=== PATIENT | female | born 1960 | race Caucasian/White ===

== ENCOUNTER → 2022-07-10 07:56 | Outpatient (BNVA) | payer OTHER, SELFPAY | PROVIDERS: PCP Family Medicine; Visit Provider Psychiatry & Neurology Neurology | DX: G43.909 Migraine, unspecified, not intractable, without status migrainosus (principal) ==

== ENCOUNTER 2023-07-01 07:55 | Outpatient (AMB) | payer OTHER, SELFPAY ==
--- NOTE | 2023-07-01 08:00 | MHC.OFFVIS ---
Intake Vital Signs 07/01/23 08:01 Height 5 ft 8 in Weight 161 lb 4 oz BMI 24.5 BP 140/80 H Blood Pressure Location Rt brachial Position Sitting Respiration 16 Pulse 64 Pulse Source Palpation Pulse Oximetry (%) 98 Intake Visit Reasons: 1yr F/u Migraine - Confirmed Intake Note: Pt presents to the office for a one year follow up for migraines. Green Chainer Required: No Allergies atropine [From Lomotil] Allergy (Mild, Verified 07/01/23 08:00) Unknown codeine Allergy (Mild, Verified 07/01/23 08:00) Hives COVID-19 vaccine, mRNA, LNP-S, pediatric (Moderna) [From Moderna COVID(6-11y) Vac(Unap)] Allergy (Mild, Verified 07/01/23 08:00) Hives diphenoxylate [From Lomotil] Allergy (Mild, Verified 07/01/23 08:00) Unknown hydrocodone Allergy (Mild, Verified 07/01/23 08:00) Hives hydromorphone [From Dilaudid] Allergy (Mild, Verified 07/01/23 08:00) Shortness of Breath vaccine adjuvant system, AS01B lipo [From Shingrix (PF)] Allergy (Mild, Verified 07/01/23 08:00) Hives varicella-zoster virus glycoprotein [From Shingrix (PF)] Allergy (Mild, Verified 07/01/23 08:00) Hives Medication List - Last Reconciled 07/01/23 by Rody Gong MD albuterol sulfate 90 mcg/actuation 2 puffs inhalation Q6H PRN B-complex with vitamin C 1 cap PO DAILY fremanezumab-vfrm (Ajovy) 675 mg (4.5 mL) subcut [id number] gabapentin 1-3 caps qhs orally bedtime; levothyroxine 50 mcg PO DAILY magnesium oxide 400 mg PO DAILY multivitamin 1 tab PO DAILY sumatriptan succinate 100 mg PO DIRECTED HPI HPI Comments History of Present Illness Details 63y/o female with chronic migraines with aura comes for follow up .she takes ajovy 225 mg q monthly and her migraine days ahve decreased from 20 migraine days a month to 1-2 migraine days a month since she started ajovy. she also has another kind of headache- starts in the ear R>L and radiates to parietal region.It is a sharp shooting pain can last weeks and she responds to gabapentin .she has 2-3 episodes a year. she tried nurtec 75 mg as needed and it helped but her insurance did not cover. she is on sumatriptan and OTC medications. Occasional aura PFSH Medical History Achilles tendinitis Surgical History History of carpal tunnel release Hx of cholecystectomy History of endometrial ablation History of section Family History Father Cancer Heart disease Stroke DM (diabetes mellitus) Mother Memory loss Family/Other Cancer S/P triple vessel bypass Heart attack Social History Household Members: Spouse Alcohol intake: current Alcohol intake frequency: holidays/special occasions only Patient Tobacco Use Status: Never used Tobacco Physical Exam Vital Signs: Last Vital Signs Pulse 64 07/01/23 08:01 Resp 16 07/01/23 08:01 BP 140/80 H 07/01/23 08:01 Pulse Ox 98 07/01/23 08:01 BMI result Body Mass Index 24.5 Const General: cooperative, healthy appearing and comfortable Nutritional Appearance: average body habitus Orientation/consciousness: patient oriented x3 Neuro General: patient oriented x3, gait normal, tone normal, moves all extremities and no focal motor deficits Cranial nerves: Yes Facial sensation intact/muscles of mastication intact, Yes Bilaterally intact EOM present, Yes Nystagmus not present and Yes Normal facial strength present Gait exam (Neuro): Normal gait present Assessment & Plan Assessment & Plan (1) Migraine with aura: Code(s): G43.109 - Migraine with aura, not intractable, without status migrainosus (2) Neck pain: Code(s): M54.2 - Cervicalgia Plan Continue ajovy 225mg q monthly sumatriptan 100mg as needed gabapentin 100 mg 1-3 caps qhs as needed neck exercises Medications: New sumatriptan succinate 100 mg PO DIRECTED 10 tabs 6RF Refilled gabapentin 1-3 caps qhs orally bedtime; 90 caps 1RF magnesium oxide 400 mg PO DAILY 90 tabs 6RF Coding Level of Care Code Est Pt Level 4 (93209) Diagnoses Migraine with aura G43.109 Neck pain M54.2
[2023-07-01 08:01] VITALS: BP 140/80; PULSE 64; RESP 16; O2SAT 98; BMI 24.5
== END 2023-07-01 08:28 | disposition home or self-care (01) ==
PROVIDERS: Visit Provider Psychiatry & Neurology Neurology
DX: G43.109 Migraine with aura, not intractable, without status migrainosus (principal); M54.2 Cervicalgia
CPT/HCPCS: 99214

== ENCOUNTER → 2023-07-01 07:55 | Outpatient (BNVA) | payer OTHER, SELFPAY | PROVIDERS: Visit Provider Psychiatry & Neurology Neurology ==

== ENCOUNTER 2024-07-01 07:51 | Outpatient (AMB) | payer OTHER, SELFPAY ==
--- OUTSIDE RECORDS SUMMARY | 2024-07-01 07:53 | XMS_ITS ---
Continuity of Care Document (CCD) Created on: July 01, 2024 Darlene Andersen External Reference #: [id number] : [id number] Sex: Female Author Organization [facility] Address [address] [place] [address] [address] [place], [place] Phone [phone] Care Team Providers Care Steward/Stewardess Dining Room Name Role Phone Issa Johnson MD Care Team Information Receive r Unavailable Social History Type Date Description Comments Sex Unknown
--- NOTE | 2024-07-01 07:58 | A.OFFVIS_ITS ---
Vital Signs 07/01/24 07:59 Height 5 ft 8 in Weight 161 lb BMI 24.5 BP 124/78 Blood Pressure Location Rt brachial Position Sitting Pulse 72 Pulse Source Pulse Oximeter Pulse Oximetry (%) 96 Oxygen Delivery Method Room Air Intake Visit Reasons: 1 yr f/u - Migraines Communications Electrician Supervisor Required: No Accompanied by: Self / Same As Patient Allergies atropine [From Lomotil] Allergy (Mild, Verified 07/01/24 08:02) Unknown codeine Allergy (Mild, Verified 07/01/24 08:02) Hives COVID-19 vaccine, mRNA, LNP-S, pediatric (Moderna) [From Moderna COVID(6-11y) Vac(Unap)] Allergy (Mild, Verified 07/01/24 08:02) Hives diphenoxylate [From Lomotil] Allergy (Mild, Verified 07/01/24 08:02) Unknown hydrocodone Allergy (Mild, Verified 07/01/24 08:02) Hives hydromorphone [From Dilaudid] Allergy (Mild, Verified 07/01/24 08:02) Shortness of Breath vaccine adjuvant system, AS01B lipo [From Shingrix (PF)] Allergy (Mild, Verified 07/01/24 08:02) Hives varicella-zoster virus glycoprotein [From Shingrix (PF)] Allergy (Mild, Verified 07/01/24 08:02) Hives Do you need a note to return to daycare/school/sports/work: No HPI Comments Details: 63y/o female with chronic migraines with aura comes for follow up . She takes Ajovy 225 mg q monthly and her migraine days have decreased from 20 migraine days a month to 1-2 migraine days a month since she started ajovy. Mar was the last time she had Ajovy. In May she only had 2-3 days without a migraine and used her Sumatriptan refills. Jun 26, had a tummy tuck sonabella CT and is on GB 100mg TID. In Jun she has had 4 migraines. She is awaiting PA approval for her Ajovy, insurance changed to [employer] from [employer] in 2023. Her neck pain is better, she uses alternatives like migraine cap and OTC meds PRN. Baseline Headache: She also has another kind of headache- starts in the ear R>L and radiates to par ietal region. It is a sharp shooting pain can last weeks and she responds to gabapentin .she has 2-3 episodes a year. She tried nurtec 75 mg as needed and it helped but her insurance did not cover. she is on sumatriptan and OTC medications. Occasional aura. [facility] Medical History Achilles tendinitis Surgical History History of carpal tunnel release Hx of cholecystectomy History of endometrial ablation History of section Family History Father Cancer Heart disease Stroke DM (diabetes mellitus) Mother Memory loss Family/Other Cancer S/P triple vessel bypass Heart attack Social History Household Members: Spouse Alcohol intake: current Alcohol intake frequency: holidays/special occasions only Patient Tobacco Use Status: Never used Tobacco Review of Systems Const All systems reviewed & are unremarkable except as noted in HPI and below Physical Exam Vital Signs: Last Vital Signs Pulse 72 07/01/24 07:59 BP 124/78 07/01/24 07:59 Pulse Ox 96 07/01/24 07:59 Oxygen Delivery Method Room Air 07/01/24 07:59 BMI result Body Mass Index 24.5 Const General: cooperative, healthy appearing and comfortable Nutritional Appearance: average body habitus Orientation/consciousness: patient oriented x3 Eyes Pupils: Equal, round and reactive pupils present Resp Effort & Inspection: normal respiratory effort and able to speak in complete sentences Neuro General: patient oriented x3, gait normal, tone normal, moves all extremities and no focal motor deficits Cranial nerves: Yes CN's II-XII intact bilaterally, Yes Facial sensation intact/muscles of mastication intact, Yes Equal, round and reactive pupils present, Yes Normal accommodation reflex present, Yes Bilaterally intact EOM present, Yes Nystagmus not present, Yes Normal facial strength present, Yes Midline tongue present, Yes Ability to bilaterally rotate head present and Yes Ability to bilaterally elevate shoulders present Gait exam (Neuro): Normal gait present Motor exam (neuro): 5/5 motor strength present throughout and Normal motor muscle tone present throughout Deep tendon reflexes (DTR's): Right triceps reflex intensity grade: 2+, Left triceps reflex intensity grade: 2+, Rt Biceps (C5, C6): 2+, Left biceps reflex intensity grade: 2+, Right brachioradialis reflex intensity grade: 2+, Left brachioradialis reflex intensity grade: 2+, Right patellar reflex intensity grade: 2+ and Left patellar reflex intensity grade: 2+ Assessment & Plan Assessment & Plan (1) Migraine with aura: Code(s): G43.109 - Migraine with aura, not intractable, without status migrainosus Category: Medical Qualifiers: Status migrainosus presence: without status migrainosus Intractability: intractable Qualified Code(s): G43.119 - Migraine with aura, intractable, wi thout status migrainosus (2) Neck pain: Code(s): M54.2 - Cervicalgia Category: Medical Plan Continue ajovy 225mg q monthly (awaiting PA approval/ insurance changed in 2023.) Sumatriptan 100mg as needed Gabapentin 100 mg 1-3 caps qhs as needed Continue neck exercises, stretches and Migraine cap. Eating a Migraine supportive diet. Coding Level of Care Code Est Pt Level 3 (62241) Diagnoses Intractable migraine with aura without status migrainosus G43.119 Status migrainosus presence: without status migrainosus Intractability: intractable Neck pain M54.2 Time Spent (min) 20 Comment at baseline
[2024-07-01 07:59] VITALS: BP 124/78; PULSE 72; O2SAT 96; BMI 24.5
== END 2024-07-01 08:25 | disposition home or self-care (01) ==
PROVIDERS: PCP Family Medicine; Visit Provider Physician Assistant Medical
DX: G43.119 Migraine with aura, intractable, without status migrainosus (principal); M54.2 Cervicalgia
CPT/HCPCS: 99213

== ENCOUNTER → 2024-07-01 07:51 | Outpatient (BNVA) | payer OTHER, SELFPAY | PROVIDERS: PCP Family Medicine; Visit Provider Physician Assistant Medical ==

== ENCOUNTER 2025-07-03 14:10 | Outpatient (AMB) | payer OTHER, SELFPAY ==
[2025-07-03 14:44] VITALS: BP 122/80; PULSE 67; O2SAT 97; BMI 25.3
--- NOTE | 2025-07-03 14:44 | A.OFFVIS_ITS ---
Vital Signs 07/03/25 14:44 Height 5 ft 8 in Weight 166 lb 8 oz BMI 25.3 BP 122/80 Blood Pressure Location Rt brachial Position Sitting Pulse 67 Pulse Source Pulse Oximeter Pulse Oximetry (%) 97 Oxygen Delivery Method Room Air Intake Visit Reasons: Follow up Intake Note: Patient presents follow up Migraine. Patient states migraines are about the same. Right eye at time hurts when having migraine. Accompanied by: Self / Same As Patient Allergies atropine (From Lomotil) Allergy (Mild, Verified 07/01/24 08:02) Unknown codeine Allergy (Mild, Verified 07/01/24 08:02) Hives COVID-19 vaccine, mRNA, LNP-S, pediatric (Moderna) (From Moderna COVID(6-11y) Vac(Unap)) Allergy (Mild, Verified 07/01/24 08:02) Hives diphenoxylate (From Lomotil) Allergy (Mild, Verified 07/01/24 08:02) Unknown hydrocodone Allergy (Mild, Verified 07/01/24 08:02) Hives hydromorphone (From Dilaudid) Allergy (Mild, Verified 07/01/24 08:02) Shortness of Breath vaccine adjuvant system, AS01B lipo (From Shingrix (PF)) Allergy (Mild, Verified 07/01/24 08:02) Hives varicella-zoster virus glycoprotein (From Shingrix (PF)) Allergy (Mild, Verified 07/01/24 08:02) Hives fentanyl Allergy (Unknown, Verified 07/03/25 14:46) Hives HPI Comments Details: 63y/o female with chronic migraines and auras presents for a follow up visit, she is a pt. of Melisa Black and Dr. Kumar. 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. She takes Ajovy 225 mg q monthly, and now migraines have decreased from 20 migraine days per month to about 4-5 migraines per month in Jun. Self administers Ajovy one injectable dosed with pre-filled syringes are preferred over injectable auto injectors due to force of pen against the skin. In Nov she only had 2-3 days without a migraine and adjuncts with Sumatriptan as needed. She has neck pain which has improved, she uses alternatives like migraine cap and OTC meds PRN. She has dizziness, vision changes, and vertigo, due to orthostatic htn, takes lorazepam 1 mg po TID for the vertigo. She walks 2.5 miles daily and remembers to hydrate. She is chronically fatigued goes to bed at 9pm, wakes at 5am with 4 bathroom breaks. FH+ for dementia mom, paternal and maternal grandma at 80, late onset. Baseline Headache: R. eye sensitivity with lateral movements and is painful to touch, 6/10 radiating pain into the r. ear, for 6months now. She has a sharp shooting pain and it can last weeks. She has 2-3 episodes a year, she tried decongestions such as Zyrtec otc and it improves the symptoms of pressure. ENT evaluation completed, denies polyps cyst, facial injury. She tried nurtec 75 mg as needed and it helped but her insurance did not cover due to ajovy. Denies sensitivity to temperature, cold air, chewing her food is painful, into the ear and brushing her hair is painful. [facility] Medical History Achilles tendinitis Surgical History History of carpal tunnel release Hx of cholecystectomy History of endometrial ablation History of section Family History Father Cancer Heart disease Stroke DM (diabetes mellitus) Mother Memory loss Family/Other Cancer S/P triple vessel bypass Heart attack Social History Household Members: Spouse Alcohol intake: current Alcohol intake frequency: holidays/special occasions only Patient Tobacco Use Status: Never used Tobacco Physical Exam Vital Signs: Last Vital Signs Pulse 67 07/03/25 14:44 BP 122/80 07/03/25 14:44 Pulse Ox 97 07/03/25 14:44 Oxygen Delivery Method Room Air 07/03/25 14:44 BMI result Body Mass Index 25.3 Const General: cooperative, healthy appearing and comfortable Nutritional Appearance: average body habitus Orientation/consciousness: patient oriented x3 Eyes Pupils: Equal, round and reactive pupils present Resp Effort & Inspection: normal respiratory effort and able to speak in complete sentences Neuro Other: pain with lateral movements of r.eye General: patient oriented x3, gait normal, tone normal, moves all extremities and no focal motor deficits Cranial nerves: Yes CN's II-XII intact bilaterally, Yes Facial sensation intact/muscles of mastication intact, Yes Equal, round and reactive pupils present, Yes Normal accommodation reflex present, Yes Bilaterally intact EOM present, Yes Nystagmus not present, Yes Normal facial strength present, Yes Midline tongue present, Yes Ability to bilaterally rotate head present and Yes Ability to bilaterally elevate shoulders present Gait exam (Neuro): Normal gait present Motor exam (neuro): 5/5 motor strength present throughout and Normal motor muscle tone present throughout Deep tendon reflexes (DTR's): Right triceps reflex intensity grade: 2+, Left triceps reflex intensity grade: 2+, Rt Biceps (C5, C6): 2+, Left biceps reflex intensity grade: 2+, Right brachioradialis reflex intensity grade: 2+, Left brachioradialis reflex intensity grade: 2+, Right patellar reflex intensity grade: 2+ and Left patellar reflex intensity grade: 2+ Results Reviewed Results Reviewed: [facility] note 2017 reviewed. Assessment & Plan Assessment & Plan (1) Excessive daytime sleepiness: Code(s): G47.19 - Other hypersomnia Category: Medical (2) Chronic fatigue: Code(s): R53.82 - Chronic fatigue, unspecified Category: Medical Plan HST r/o gt Labs complete at pcps office and fasting. Migraines with aura continue Ajovy and adjunct with sumatriptan 100mg po prn headaches, may take one additional dose with in 2 hours of the first if the headache does not abort, do not excced 200mg in a 24 hour period. Use migraine cap and lay down in a dark quiet room, and identifiy/ avoid triggers. F/u in 3 months. Orders: Orders Complete Blood Count no Diff Today G47.19 - Other hypersomnia, R53.82 - Chronic fatigue, unspecified Comprehensive Met. Panel Today G47.19 - Other hypersomnia, R53.82 - Chronic fatigue, unspecified Methylmalonic Acid Today G47.19 - Other hypersomnia, G47.9 - Sleep disorder, unspecified, R53.82 - Chronic fatigue, unspecified, R53.83 - Other fatigue Homocysteine Today G47.19 - Other hypersomnia, G47.9 - Sleep disorder, unspecified, R53.82 - Chronic fatigue, unspecified, R53.83 - Other fatigue Vitamin D 25-OH Total Today G47.19 - Other hypersomnia, R53.82 - Chronic fatigue, unspecified Vitamin B12 and Folate Today G47.19 - Other hypersomnia, R53.82 - Chronic fatigue, unspecified TSH reflex Free T4 Today G47.19 - Other hypersomnia, R53.82 - Chronic fatigue, unspecified RT home sleep study Today G47.19 - Other hypersomnia Ferritin Today G47.19 - Other hypersomnia, R53.82 - Chronic fatigue, unspecified Medications: Changed From B-complex with vitamin C 1 cap PO DAILY To B-complex with vitamin C 1 cap PO DAILY 30 caps 0RF 1 month Refilled sumatriptan succinate 100 mg PO DIRECTED 10 tabs 6RF fremanezumab-vfrm (Ajovy) 675 mg (4.5 mL) subcut [id number] 4.5 mL 6RF magnesium oxide 400 mg PO DAILY 90 tabs 6RF Patient Instructions: Sleep Hygiene provided: set a scheduled bedtime and wake time to help regulate the circadian rhythm and balance the release of pituitary hormones. Sleep in a dark room, temperatures below 68 degrees, and no devices n bed. Limit caffeinated products 6 hours prior to bed, and limit fluids 2-4 hours prior to bed. Gentle night yoga, diffusing essential oils, and playing soft music can be relaxing. Coding Level of Care Code Est Pt Level 4 (27678) Diagnoses Excessive daytime sleepiness G47.19 Chronic fatigue R53.82
--- OUTSIDE RECORDS SUMMARY | 2025-07-03 20:38 | XMS_ITS | Clinical Summary ---
Author Organization [facility] Address [address] [place], [place] [id number] Phone Care Team Providers Care Software Database Architect Name Role Phone Chanel Burdick NP Primary Care Provider Issa Johnson MD Unavailable [phone] Allergies Active Allergy Reactions Criticality Noted Date Comments Codeine 11/08/2015 Dilaudid (Hydromorphone) 11/08/2015 Hydrocodone Bitartrate 11/08/2015 Lomotil (Diphenoxylate-Atropine) Medications NORTRIPTYLINE HCL (NORTRIPTYLINE ORAL) Take by mouth. Activ e LEVOTHYROXINE SODIUM (LEVOTHYROXINE ORAL) Take by mouth. Activ e PROPRANOLOL HCL (PROPRANOLOL ORAL) Take by mouth. Activ e TOPIRAMATE ORAL Take by mouth. Active LORAZEPAM ORAL Take by mouth. Active SUMATRIPTAN SUCCINATE ORAL Take by mouth. Active MAGNESIUM ORAL Take by mouth. Active VITAMIN B COMPLEX ORAL Take by mouth. Ac tive b complex vitamins capsule Orally Active Medication-Free Text Magnesium 500 MG Tablet, Si tablet with a meal Orally Once a day Active diclofenac sodium (VOLTAREN) 1 % Gel Externally Active sulindac (CLINORIL) 200 MG tablet 1 tablet with food Orally Twice a day Active topiramate (TOPAMAX) 50 MG tablet 1 tablet Orally Twice a day Active levothyroxine (SYNTHROID, LEVOTHROID) 50 MCG tablet 1 tablet Orally Once a day Active multivitamin (DAILY MULTI-VITAMIN) per tablet Take 1 tablet by mouth daily. Active Active Problems Problem Noted Date Diagnosed Date Dizziness Family History Medical History Relation Comments Hearing loss Father Hearing loss Maternal Grandfather Hearing loss Maternal Grandmother Hearing loss Mother Hearing loss Relation Status Comments Father Maternal Grandfather Maternal Grandmother Mother Social History Tobacco Use Types Packs/Day Years Used Date Smoking Tobacco: Never Alcohol Use Standard Drinks/Week Comments No 0 (1 standard drink = 0.6 oz pur e alcohol) Education Answer Date Recorded Are you interested in more education? Not on sarbjit e 11/14/2022 Are you concerned about learning? Not on file 11/14/2022 No 11/14/2022 No 11/14/2022 Digital Access Answer Date Recorded No 12/15/2022 No 12/15/2022 Reliable internet access at home? Not on file 12/15/2022 Device with a working camera? Not on file Comments Unknown Sex and Gender Information Value Date Recorded Sex Assigned at Not on file Legal Sex Female 11:44 AM EDT Gender Identity Not on file Sexual Orientation Not on file Last Filed Vital Signs Vital Sign Reading Time Taken Comments Blood Pressure - - Pulse - - Temperature - - Respiratory Rate - - Oxygen Saturation - - Inhaled Oxygen Concentration - - Weight 66.2 kg (146 lb) 02/18/2016 11:18 AM EDT Height 172.7 cm (5' 8 ) 02/18/2016 11:18 AM EDT Body Mass Index 22.2 02/18/2016 11:18 AM EDT Plan of Treatment Health Maintenance Due Date Last Done Comments LIPID PANEL 1960 TSH LEVEL 1960 DEPRESSION SCREENING 1972 HEPATITIS C SCREENING 01/25/1978 HIV ONE-TIME SCREENING (18-65 YEARS) 01/25/1978 MAMMOGRAM 2000 COLOGUARD 01/25/2005 COLONOSCOPY 01/25/2005 COLORECTAL CANCER SCREENING 01/25/2005 FIT TEST 01/25/2005 FOBT 01/25/2005 SIGMOIDOSCOPY 01/25/2005 VIRTUAL COLONOSCOPY 01/25/2005 PNEUMOCOCCAL VACCINES (50+ years) (1 of 1 - PCV) 01/25/2010 ZOSTER VACCINES (2 of 2) 11/05/2018 09/10/2018 OSTEOPOROSIS SCREENING INITIAL (ONE-TIME) 01/25/2025 INFLUENZA VACCINE (#1) 2025 0, 05/15/2018, 05/03/2017, Additional history exists COVID-19 VACCINE (3 - 2024- season) 2025 08/27/2020, 07/30/2020 Adult Td,Tdap Booster 07/14/2028 07/14/2018, 009 RSV VACCINE (1 - 1-dose 75+ series) 01/25/2035 SMOKING STATUS SCREENING (Once After 26 Yrs) Completed 01/07/2016 HEPATITIS A VACCINES Aged Out No long er eligible based on patient's age to complete this topic HIB VACCINES Aged Out No longer eligi ble based on patient's age to complete this topic MENINGOCOCCAL VACCINES (ACWY) Aged Out No longer eligible based on patient's age to complete this topic MENINGOCOCCAL VACCINES (B) Aged Out N o longer eligible based on patient's age to complete this topic Medical Devices Not on file [facility] POS NAVIGATOR POS ATOR POS NAVIGATOR POS NAVIGATOR POS ATOR POS NAVIGATOR POS [facility] NAVIGATOR POS Care Teams Software Database Architect Relationship Specialty Start Date End Date Chanel Burdick NP [address] [facility] [address] [place] [address] [email or web address] PCP - General Family Medicine 12/23/19 Issa Johnson MD [address] [id number] Insurance Assigned Provider Internal Medicine 12/29/19 Additional Source Comments The information contained in this document represents components of the legal health record. It is not the complete legal health record.[facility]
--- OUTSIDE RECORDS SUMMARY | 2025-07-03 20:38 | XMS_ITS | Continuity of Care Document ---
Author Organization [place] [facility] Address [address] [address] Assessment Encounter Date Assessment Date Assessment LastModified by Organization Details LastModified Time 06/29/2025 06/29/2025 Assessment Possible significant contusion (bone bruise) of the knee following mechanical fall. Differential includes other internal knee injury, to be further evaluated with x-ray. Possible thyroid dysfunction, pending laboratory evaluation. Stable asthma, requiring albuterol refill. Plan Order an x-ray of the knee to evaluate for any underlying abnormality following the recent fall. Advised to kneel on a pillow or use an EPAP for cushioning when kneeling, and to minimize kneeling as much as possible to reduce discomfort, acknowledging the impracticality given occupational demands. If symptoms persist beyond the expected healing period or worsen, consider MRI for further evaluation. Prescribed a refill of albuterol inhaler. Ordered laboratory tests to assess thyroid function and other relevant parameters, given the interval since last blood work and current symptoms. Will review laboratory results and contact if any abnormalities are identified prior to the next scheduled visit. Prescription - Albuterol inhaler refill sent [id number] Not available 06/29/2025 15:39:23 Plan of Treatment Reminders Order Date Submit Date Provider Last Modified By Organization Details Last Modified Time Details Appointments Annual Exam 2025 08:20A Tiffanie Burdick NP Not available Not available Not available Lab lipid panel, serum 2024 025 MACI [facility] (Centralized Electronic Ordering - All Locations), Patient Can Go To The Location Of Their Choice, [id number] 06/29/2025 15:39:20 CMP, serum or plasma 2024 025 [facility] (Centralized Electronic Ordering - All Locations), Patient Can Go To The Location Of Their Choice, [id number] 06/29/2025 15:39:19 TSH + free T4, serum 2024 025 [facility]OV[facility] (Centralized Electronic Ordering - All Locations), Patient Can Go To The Location Of Their Choice, [id number] 06/29/2025 15:39:22 Referral None recorded. Procedures None recorded. Surgeries None recorded. Imaging XR, knee, 3 view 2024 025 [facility] Central Scheduling, [address] [place], [address], 07/01/2025 10:45:31 Medication Orders albuterol sulfate HFA 90 mcg/actua tion aerosol inhaler 2024 025 [id number], [address] [place], [address], 06/29/2025 15:36:56 Patient TargetsNo targets recorded. Patient InstructionsNo instructions recorded. Reason for Referral None Reported. Results Created Date Observation Date Name Description Value Unit Range Abnormal Flag Note LastModifiedBy Organization Detail LastModifiedTime 07/01/2007/01/2025 XR, knee, 3 view No observ ation record ed. [address], [address], 07/03/2025 20:00:37 07/01/20 25 06/29/2025 XR, knee, 3 view Right knee 3 views dated [facility] er 2024. Compar raheem films are from January 31, 2025. HISTOR Y: Pain. FINDIN GS: No eviden ce of fractu re or disloc ation. There is minima l loss of joint space in the medial joint compar tment. Minima l pointi ng of the tibial spines is noted. No joint effusi on is seen. IMPRES RACHEL: Minima l degene rative change s. No eviden ce of fractu re or disloc ation. Examin ation [id number]. . Thank you for jessikai ng me to partic ipate in the care of this patien t. WSN: [id number] Orderi carlos Physic natalee: Chanel Burdick Dictat ed By: Gabriel Zavala MD Dictat ed Date/T ned: 10:39 a Review ed By: Gabriel Zavala MD Signed By: Gabriel Zavala MD Signed Date/T ned: 10:39 am Transc ribed By: CSKemar Transc ribed Date/T ned: 10:39 am Patien t Class: 5 [facility] (Outpt Imaging) [address] [facility], [place], [address], 07/03/2025 20:00:37 Result Notes None recorded. Problems Name Problem SNOMED Code Status Onset Date Resolution Date Notes Provider Name and Address Organization Details Recorded Time Anxiety 93495169 Active Not Available [facility] 3 13:21:07 Family history of breast cancer 920209774 Active Not Available [facility] 3 13:21:07 Hypothyro idism 77573880 Active Not Available [facility] 3 13:21:07 Irritable bowel syndrome 55420435 Active with constipat ion Not Available [facility] 3 13:21:07 Migraine 37799460 Active Not Available [facility] 3 13:21:07 Osteopeni a 725434402 Active Not Available [facility] 3 13:21:07 Cyst of pancreas 21412784 Active Not Available [facility] 3 13:21:07 Gastroeso phageal reflux disease 079934425 Active Not Available [facility] 3 13:21:07 History of polyp of colon 343236288 Active Not Available [facility] 3 13:21:07 Achilles tendiniti s 91896114 Active Not Available [facility] 3 13:21:07 Left eye pain 22736948694 9104 Active 2024 Renee Chavarria, [employer] [address] [facility], [facility] [address], [place], [address] , [place] [facility] 5 10:36:40 Degenerat ion of meniscus of knee, 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 Procedures Surgical History Date Name Laterality Status Provider Name and Address Organization Details Recorded Time 05/01/20 25 [facility] [place] [facility] 05/02/2025 14:48:48 11/18/19 25 Date of [facility] [place] [facility] 06/28/2025 20:12:24 09/22/19 24 Date of [facility] [place] [facility] 06/28/2025 20:11:11 12/12/19 23 Family Practice Trigger Point Injection completed Chanel Burdick NP 55 [facility], [facility] [place] [address], [address], [place] [facility] 12/11/2022 15:49:03 11/19/19 23 Joint Injection completed Chanel Burdick NP 55 [facility], [facility] [address], [place], [address], [place] [facility] 11/18/2022 14:02:21 07/20/18 95 Gallbladder Surgery completed Chanel Burdick NP 55 [facility], [facility] [address], [place], [address], [place] [facility] 02/26/2022 13:21:39 07/20/18 94 Carpal Tunnel Surgery completed Chanel Burdick NP 55 [facility], [facility] [address], [place], [address], [place] [facility] 02/26/2022 13:21:39 07/20/18 92 Carpal Tunnel Surgery completed Chanel Burdick NP 55 [facility], [facility] [address], [place], [address], [place] [facility] 02/26/2022 13:21:39 07/20/18 84 Other completed Chanel Burdick NP 55 [facility], [facility] [address], [place], [address], [place] [facility] 02/26/2022 13:21:39 07/20/18 81 Other completed Chanel Burdick NP 55 [facility], [facility] [address], [place], [address], [place] [facility] 02/26/2022 13:21:39 Imaging Results None recorded. Procedure Notes None recorded. Medical Equipment None Reported. Allergies Allergen ID Allergen Name Allergen Category Reaction Reaction Severity Criticality Documentation Date Start Date Code Code System Note Provider Name and Address Organization Details Recorded Time 32773 hydromorp sintia medicatio n Not available Not available Not available 06/28/20252015 3423 RxNorm Not Available [email or web address] - prod 20:17:03 13196 hydrocodo ne bitartrat e medicatio n Not available Not available Not available 06/28/20252015 37569 9 RxNorm Not Available [employer] - prod 20:17:03 37493 atropine / diphenoxy late medicatio n Not available Not available Not available 06/28/20252015 06367 0 RxNorm Not Available [employer] - prod 20:17:03 84503 acetamino phen / hydrocodo ne medicatio n Not available Not available [facility] 06/28/2025 40997 2 RxNorm unrec ogniz ed react ion (text : Weal (diso rder) , code: 04320 2003) ([facility] Not Available [employer] - prod 20:17:23 1495 oxycodone medicatio n hives severe Not available 02/26/2022 7804 RxNorm Fartun Lapan [address] [address], [place], [address], [place] [facility] 2 13:12:30 1496 codeine medicatio n hives severe Not available 02/26/2022 2670 RxNorm Fartun Lapan [address] [address], [place], [address], [place] [facility] 2 13:12:30 1497 hydrocodo ne Not available hives severe Not available 02/26/2022 5489 RxNorm Fartun Lapan [address] [address], [place], [address], [place] [facility] 2 13:12:30 1498 Lomotil medicatio n hives severe Not available 02/26/2022 70703 RxNorm Fartun Lapan [address] [place] [address], [place], [address], [place] [facility] 2 13:12:30 1499 SARS-CoV- 2 (COVID-19 ) vaccine, mRNA-1273 medicatio n hives severe Not available 02/26/2022 81522 32 RxNorm Fartun Lapan [address] [place] [address], [place], [address], [place] [facility] 2 13:12:30 1500 Dilaudid medicatio n hives severe Not available 02/26/2022 61918 3 RxNorm Fartun Lapan [address] [place] [address], [place], [address], [place] [facility] 2 13:12:30 1501 Shingrix medicatio n hives Not available Not available 02/26/2022 73966 26 RxNorm Fartun Lapan [address] [place] [address], [place], [address], [place] [facility] 2 13:13:25 8418 fentanyl medicatio n hives Not available [facility] 01/31/2025 4337 RxNorm Monika Mcallister RN [address] [address], [place], [address], [place] [facility] 5 14:00:29 Medications Name Sig Start Date Stop Date Status Note LastModified by Organization Details LastModified Time ketamine 10% / diclo 5% / baclo 2% / cyclo 2% ssls cream Apply 1-3 grams to the affected area 3-4 times daily (ACHILLI ES) APPLY FIRST. RUB in WELL. 07/02 completed Not Available Not Available Not Available azithromy susan 250 mg tablet TAKE 2 TABLETS BY MOUTH TODAY, THEN TAKE 1 TABLET DAILY FOR 4 DAYS DIRECTED 01/31 completed Not Available Not Available Not Available sumatript an 100 mg tablet TAKE 1 TABLET BY MOUTH EVERY DAY DIRECTED active Not Available Not Available No t Available ondansetr on HCl 4 mg tablet TAKE 1 TABLET BY MOUTH EVERY 4 HOURS 01/31 completed Not Available Not Available Not Available tramadol 50 mg tablet TAKE 1 TABLET BY MOUTH 3 TIMES A DAY NEEDED, DONT DRIVE WHILE TAKING THIS MED 05/25 completed Not Available Not Available Not Available triamcino lone acetonide 0.1 % topical cream APPLY THIN COAT TO AFFECTED AREA TWICE A DAY 05/25 completed Not Available Not Available Not Available meloxicam 7.5 mg tablet TAKE 1 TABLET BY MOUTH EVERY DAY 01/31 completed Not Available Not Available Not Available magnesium oxide 400 mg (241.3 mg magnesium ) tablet TAKE 1 TABLET BY MOUTH EVERY DAY active Not Available Not Available No t Available lorazepam 0.5 mg tablet TAKE 2 TABLETS BY MOUTH 3 TIMES A DAY prn active Not Available Not Available No t Available levothyro xine 50 mcg tablet TAKE 1 TABLET BY MOUTH EVERY DAY DIRECTED active Not Available Not Available No t Available pantopraz ole 40 mg tablet,de layed release TAKE 1 TABLET BY MOUTH EVERY DAY active Not Available Not Available No t Available omeprazol e 20 mg capsule,d elayed release TAKE 1 CAPSULE BY MOUTH EVERY DAY NEEDED 12/28 completed Not Available Not Available Not Available diclofena c sodium 75 mg tablet,de layed release TAKE 1 TABLET BY MOUTH TWICE A DAY DIRECTED 04/12 completed Not Available Not Available Not Available cephalexi n 500 mg tablet TAKE 1 TABLET BY MOUTH THREE TIMES A DAY 12/28 completed Not Available Not Available Not Available gabapenti n 100 mg capsule TAKE 1 CAPSULE BY MOUTH THREE TIMES A DAY 01/31 completed Not Available Not Available Not Available lorazepam 1 mg tablet 1 TABLET BY MOUTH 3 TIMES A DAY, FOR DIZZINES S 07/17 completed Checked masspat last filled 12/17/22 with qty of 30 Not Available Not Available Not Available methylpre dnisolone 4 mg tablets in a dose pack TAKE 6 TABLETS ON DAY 1 DIRECTED ON PACKAGE AND DECREASE BY 1 TAB EACH DAY FOR A TOTAL OF 6 DAYS 07/02 completed Not Available Not Available Not Available albuterol sulfate HFA 90 mcg/actua tion aerosol inhaler Inhale 2 puffs every 4 hours by inhalati on route as needed. 12/11/ 2025 active Not Available Not Available Not Avai lable doxepin 5 % topical cream APPLY 1G TO AFFECTED AREA 3-4 TIMES DAILY. WAIT 3-4 HRS BETWEEN APPLICAT IONS. (achilli es) apply second 11/15 completed Not Available Not Available Not Available cyclobenz aprine 5 mg tablet TAKE 1 TABLET BY MOUTH TWICE A DAY NEEDED FOR 7 DAYS 09/21 completed Not Available Not Available Not Available Mucinex DM 30 mg-600 mg tablet,ex tended release 12 hr Take 1 tablet every 12 hours by oral route. 01/31 completed Not Available Not Available Not Available vitamin B complex 1 tab daily active Not Available Not Available No t Available tramadol ER 100 mg tablet,ex tended release 24 hr TAKE 1 TABLET BY MOUTH EVERY DAY 01/31 completed Not Available Not Available Not Available GaviLyte- G 236 gram-22.7 4 gram-6.74 gram-5.86 gram oral solution PLEASE SEE ATTACHED FOR DETAILED DIRECTIO NS 12/28 completed Not Available Not Available Not Available Ajovy Syringe 225 mg/1.5 mL subcutane ous TO BE INJECTED SUBCUTAN EOUS TO BE INJECTED ONCE A MONTH 02/26 completed Not Available Not Available Not Available [facility] 75 mg disintegr ating tablet 75 MG BY MOUTH EVERY OTHER DAY 02/26 completed Not Available Not Available Not Available Ajovy 225 mg/1.5 mL subcutane ous auto-inje ctor 675 MG (4.5 ML) SUBCUTAN EOUSLY EVERY 3 MONTHS active Not Available Not Available No t Available Paxlovid 300 mg (150 mg x 2)-100 mg tablets in a dose pack TAKE 3 TABLETS TOGETHER BY MOUTH 2 TIMES A DAY FOR 5 DAYS 02/26 completed Not Available Not Available Not Available Vitals Date Recorded Body height Body mass index (BMI) Body weight Heart rate Oxygen saturation Systolic And Diastolic Provider Name and Address Organization Details Last Updated DateTime 5 170.82 cm 26.1 kg/m2 36210.5 2 g 69 /min 97 % 132/76 mm[Hg] Sally Redman [place] [facility] 5 15:18:58 Social History Question Answer Notes LastModified by Organizat ion Details LastModified Time Tobacco Smoking Status Never Smoker Chanel Burdick NP [address] [facility] [address], [place], [address], [place] [facility] 02/26/2022 13:21:22 Do You Have An Advance Directive? Yes [email or web address] Information not available 02/26/2022 Sex: Unknown Functional Status Question Answer Note LastModified by Organizat ion Details LastModified Time Do you use any illicit or recreational drugs? No [email or web address] Information not available 02/26/2022 What is your level of alcohol consumption? Occasional [email or web address] Information not available 02/26/2022 Are you currently employed? Yes [email or web address] Information not available 02/26/2022 Mental Status None recorded. Family History Relationship Description Onset Age of this Age Resolved Age Notes LastModified by Organization Details LastModified Time Mother Arthritis pt. added direct ly (02/23) [email or web address] Not available 05/29/2025 10:15:33 Mother Cerebrovascu lar accident pt. added direct ly (02/23) [email or web address] Not available 05/29/2025 10:15:33 Mother Disorder of thyroid gland pt. added direct ly (02/23) [email or web address] Not available 05/29/2025 10:15:33 Mother Heart disease pt. added direct ly (02/23) [email or web address] Not available 05/29/2025 10:15:33 Mother Hypercholest erolemia pt. added direct ly (02/23) [email or web address] Not available 05/29/2025 10:15:33 Mother Hypertensive disorder pt. added direct ly (02/23) [email or web address] Not available 05/29/2025 10:15:33 Mother Dementia pt. added direct ly (02/23) [email or web address] Not available 05/29/2025 10:15:33 Mother Myocardial infarction pt. added direct ly (02/23) [email or web address] Not available 02/23/2022 13:27:44 Mother Osteoporosis pt. added direct ly (02/23) [email or web address] Not available 05/29/2025 10:15:33 Mother Obese pt. added direct ly (02/23) [email or web address] Not available 05/29/2025 10:15:33 Father Arthritis pt. added direct ly (02/23) [email or web address] Not available 05/29/2025 10:15:33 Father Cerebrovascu lar accident pt. added direct ly (02/23) [email or web address] Not available 05/29/2025 10:15:33 Father Diabetes mellitus pt. added direct ly (02/23) [email or web address] Not available 05/29/2025 10:15:33 Father Heart disease pt. added direct ly (02/23) [email or web address] Not available 05/29/2025 10:15:33 Father Hypercholest erolemia pt. added direct ly (02/23) [email or web address] Not available 05/29/2025 10:15:33 Father Hypertensive disorder pt. added direct ly (02/23) [email or web address] Not available 05/29/2025 10:15:33 Father Myocardial infarction pt. added direct ly (02/23) [email or web address] Not available 02/23/2022 13:27:44 Father Malignant neoplastic disease pt. added direct ly (02/23) [email or web address] Not available 05/29/2025 10:15:33 Father Obese pt. added direct ly (02/23) [email or web address] Not available 05/29/2025 10:15:33 Sister Arthritis pt. added direct ly (02/23) [email or web address] Not available 05/29/2025 10:15:33 Sister Disorder of thyroid gland pt. added direct ly (02/23) [email or web address] Not available 05/29/2025 10:15:33 Sister Hypertensive disorder pt. added direct ly (02/23) [email or web address] Not available 05/29/2025 10:15:33 Sister Malignant neoplastic disease pt. added direct ly (02/23) [email or web address] Not available 05/29/2025 10:15:33 Sister Obese pt. added direct ly (02/23) [email or web address] Not available 05/29/2025 10:15:33 Brother Arthritis pt. added direct ly (02/23) [email or web address] Not available 05/29/2025 10:15:33 Brother Heart disease pt. added direct ly (02/23) [email or web address] Not available 05/29/2025 10:15:33 Brother Hypercholest erolemia pt. added direct ly (02/23) [email or web address] Not available 05/29/2025 10:15:33 Brother Hypertensive disorder pt. added direct ly (02/23) [email or web address] Not available 05/29/2025 10:15:33 Brother Myocardial infarction 40 47 pt. added direct ly (02/23) [email or web address] Not available 05/29/2025 10:15:33 Brother Substance abuse pt. added direct ly (02/23) [email or web address] Not available 05/29/2025 10:15:33 Brother Obese pt. added direct ly (02/23) [email or web address] Not available 05/29/2025 10:15:33 Maternal Grandmother Arthritis pt. added direct ly (02/23) [email or web address] Not available 05/29/2025 10:15:33 Maternal Grandmother Disorder of thyroid gland pt. added direct ly (02/23) [email or web address] Not available 05/29/2025 10:15:33 Maternal Grandmother Heart disease pt. added direct ly (02/23) [email or web address] Not available 05/29/2025 10:15:33 Maternal Grandmother Hypertensive disorder pt. added direct ly (02/23) [email or web address] Not available 05/29/2025 10:15:33 Maternal Grandmother Osteoporosis pt. added direct ly (02/23) [email or web address] Not available 05/29/2025 10:15:33 Maternal Grandmother Malignant neoplastic disease pt. added direct ly (02/23) [email or web address] Not available 05/29/2025 10:15:33 Maternal Grandmother Obese pt. added direct ly (02/23) [email or web address] Not available 05/29/2025 10:15:33 Paternal Grandmother Arthritis pt. added direct ly (02/23) [email or web address] Not available 05/29/2025 10:15:33 Paternal Grandmother Disorder of thyroid gland pt. added direct ly (02/23) [email or web address] Not available 05/29/2025 10:15:33 Paternal Grandmother Heart disease pt. added direct ly (02/23) [email or web address] Not available 05/29/2025 10:15:33 Paternal Grandmother Hypertensive disorder pt. added direct ly (02/23) [email or web address] Not available 05/29/2025 10:15:33 Paternal Grandmother Dementia pt. added direct ly (02/23) [email or web address] Not available 05/29/2025 10:15:33 Paternal Grandmother Obese pt. added direct ly (02/23) [email or web address] Not available 05/29/2025 10:15:33 Maternal Grandfather Cerebrovascu lar accident pt. added direct ly (02/23) [email or web address] Not available 05/29/2025 10:15:33 Maternal Grandfather Heart disease pt. added direct ly (02/23) [email or web address] Not available 05/29/2025 10:15:33 Maternal Grandfather Hypertensive disorder pt. added direct ly (02/23) [email or web address] Not available 05/29/2025 10:15:33 Maternal Aunt Cerebrovascu lar accident pt. added direct ly (02/23) [email or web address] Not available 05/29/2025 10:15:33 Maternal Aunt Disorder of thyroid gland pt. added direct ly (02/23) [email or web address] Not available 05/29/2025 10:15:33 Maternal Aunt Heart disease pt. added direct ly (02/23) [email or web address] Not available 05/29/2025 10:15:33 Maternal Aunt Hypertensive disorder pt. added direct ly (02/23) [email or web address] Not available 05/29/2025 10:15:33 Maternal Aunt Myocardial infarction pt. added direct ly (02/23) [email or web address] Not available 02/23/2022 13:27:44 Maternal Aunt Osteoporosis pt. added direct ly (02/23) [email or web address] Not available 05/29/2025 10:15:33 Maternal Aunt Obese pt. added direct ly (02/23) [email or web address] Not available 05/29/2025 10:15:33 Maternal Uncle Cerebrovascu lar accident pt. added direct ly (02/23) [email or web address] Not available 05/29/2025 10:15:33 Maternal Uncle Heart disease pt. added direct ly (02/23) [email or web address] Not available 05/29/2025 10:15:33 Maternal Uncle Hypertensive disorder pt. added direct ly (02/23) [email or web address] Not available 05/29/2025 10:15:33 Maternal Uncle Myocardial infarction pt. added direct ly (02/23) [email or web address] Not available 02/23/2022 13:27:44 Maternal Uncle Obese pt. added direct ly (02/23) [email or web address] Not available 05/29/2025 10:15:33 Paternal Grandfather Heart disease pt. added direct ly (02/23) [email or web address] Not available 05/29/2025 10:15:33 Paternal Grandfather Hypertensive disorder pt. added direct ly (02/23) [place] Not available 05/29/2025 10:15:33 Paternal Uncle Heart disease pt. added direct ly (02/23) [place]ham Not available 05/29/2025 10:15:33 Paternal Uncle Hypertensive disorder pt. added direct ly (02/23) [email or web address] Not available 05/29/2025 10:15:33 Paternal Uncle Obese pt. added direct ly (02/23) [email or web address] Not available 05/29/2025 10:15:33 Paternal Aunt Heart disease pt. added direct ly (02/23) [email or web address] Not available 05/29/2025 10:15:33 Paternal Aunt Hypertensive disorder pt. added direct ly (02/23) [email or web address] Not available 05/29/2025 10:15:33 Paternal Aunt Myocardial infarction pt. added direct ly (02/23) [email or web address] Not available 02/23/2022 13:27:44 Paternal Aunt Obese pt. added direct ly (02/23) [email or web address] Not available 05/29/2025 10:15:33 Medical History Condition Response Muscle, Joint, or Bone Problems Y Arthritis Y Difficulty Swallowing Y Constipation Y Ear or Hearing Problems Y Headaches Y Thyroid Problems Y Asthma Y Hypothyroidism Y GI Problems Y Gynecological History Statement/Question Response Date of Last Pap Smear 09/22/2023 Most Recent Mammogram 05/01/2025 Date of Last Colonoscopy 11/17/2024 Obstetrics History GPAL:G 0 P 0 0 0 0 Immunizations Vaccine Type Date Status Note Provider Miguel clay and Address Organization Details Recorded Time Influenza, MDCK, quadrivalent, PF 2 completed Sheeba Lama null, [place] [facility] 12/11/2022 15:25:28 COVID-19, mRNA, LNP-S, bivalent, PF, 50 mcg/0.5 mL or 25mcg/0.25 mL dose 2 completed Sheeba Lama null, [place] [facility] 12/11/2022 15:25:28 Influenza, MDCK, quadrivalent, PF 3 completed Alyssa Turk null, [place] [facility] 09/21/2023 09:30:25 COVID-19, mRNA, LNP-S, PF, 50 mcg/0.5 mL 3 completed Alyssa Turk null, [place] [facility] 09/21/2023 09:29:54 Influenza, split virus, trivalent, PF 4 completed Alyssa Turk null, [place] [facility] 12/28/2024 10:25:16 Influenza, adjuvanted, trivalent, PF 5 completed Alyssa Turk null, [place] [facility] 05/29/2025 10:15:15 RSV, bivalent, protein subunit RSVpreF, diluent reconstituted, 0.5 mL, PF 5 completed Alyssa Turk null, [place] [facility] 05/29/2025 10:15:15 zoster recombinant 9 completed Chanel Burdick, [employer] [address], [address], [place] [facility] 02/26/2022 13:21:59 Influenza, MDCK, quadrivalent, PF 8 completed Chanel Burdick, [employer] [address], [address], [place] [facility] 02/26/2022 13:21:59 Influenza, split virus, trivalent, PF 5 completed Chanel Burdick, [employer] [address], [address], [place] [facility] 02/26/2022 13:21:59 Td (adult), 2 Lf tetanus toxoid, preservative free, adsorbed 8 completed Chanel Burdick NP [address] [address], [place], [place], , [place] [facility] 02/26/2022 13:21:59 COVID-19, mRNA, LNP-S, PF, 100 mcg/0.5mL dose or 50 mcg/0.25mL dose 1 completed Chanel Burdick NP [address] [address], [place], [place], , [place] [facility] 02/26/2022 13:21:59 Influenza, split virus, trivalent, PF 7 completed Chanel Burdick NP [address], , [place] - [facility] 02/26/2022 13:21:59 Influenza, recombinant, quadrivalent, PF 0 completed Chanel Burdick NP [address], , [place] - [facility] 02/26/2022 13:21:59 Influenza, split virus, trivalent, preservative 1 completed Chanel Burdick NP [address] [address], [place], , [place] [facility] 02/26/2022 13:21:59 COVID-19, mRNA, LNP-S, PF, 100 mcg/0.5mL dose or 50 mcg/0.25mL dose 1 completed Chanel Burdick NP [address], , [place] - [facility] 02/26/2022 13:21:59 COVID-19, mRNA, LNP-S, PF, 100 mcg/0.5mL dose or 50 mcg/0.25mL dose 1 completed Chanel Burdick NP [address] [address], [place], , [place] [facility] 02/26/2022 13:21:59 Td (adult), 2 Lf tetanus toxoid, preservative free, adsorbed 9 completed Chanel Burdick NP 55 [facility], [address], [place], [address], [facility] 02/26/2022 13:21:59 Past Encounters Encounter ID Performer Location Encounter Start Date Encounter Closed Date Diagnosis/Indication Diagnosis SNOMED-CT Code Diagnosis ICD10 Code Diagnosis IMO Codes Diagnosis Note [id number] Chanel Burdick NP [facility] [address] [facility],[address] [place] [address] 06/29/2025 15:12:18 06/29/2025 15:39:57 Asthma 312807917 J45.909 Pain of knee region 1003 [id number] M25.561 [id number] Hypothyroidism 71507067 E03.9 Due for rechceck. Labs have been ordered. Screening for cardiovascular system disease 120887291 Z13.6 [id number] Due for a physical. Labs prior. Health Concerns Section Related Observation LastModified by Organization Detai ls LastModified Time None Recorded Concern Status LastModified by Organization Details LastModified Time None Recorded Payers Encounter Date Sequence Insurance Name Policy Number Policy Maria Covered Member ID Maria Member ID Guarantor Name 06/29/2025 1 [facility] [employer] (POS) Darlene Andersen [id number] Darlene Andersen Notes Date Note Type Note Provider Name and Address Organization Details Recorded Time 06/29/2025 text/html ROS as noted in the HPI Darlene Andersen, 65-year-old female, fell over the 2024 on a slippery wooden ramp, landing on the knee and hip. Initial soreness followed by episodic sharp pain in the knee described as g lass going up through my knee when kneeling or moving from a kneeling position; pain severe enough to bring tears at times. Since the fall, aching localized around the kneecap persists, worsens with kneeling and occasionally when leaning the kneecap against objects; walking and stairs are tolerated. Denies laceration or foreign body to the knee. Reports baseline knee clicking not worse than usual. Notes occasional giving way when going uphill without severe limitation. Has been using ibuprofen (three tablets three times daily), topical diclofenac (Voltaren), and arnica with partial relief. Also reports feeling a lways starving and wonders if thyroid is o ff again ; last blood work was a long time ago. Requests refill of albuterol. Chanel Burdick NP 55 [facility] [address], [place], [address], [place] [facility] 06/29/2025 15:40:27 OBGyn Episode No OBEpisode recorded.
--- OUTSIDE RECORDS SUMMARY | 2025-07-03 20:38 | XMS_ITS | Data Portability ---
Author Organization [facility], [employer] Address [address] [place] [id number] Assessment Encounter Date Assessment Date Assessment LastModified by Organization Details LastModified Time 07/02/2023 07/02/2023 35 minutes spent on date of service on chart review, direct time spent with patient, and documentation of clinical encounter. Number and Complexity of Problems Addressed: moderate Amount and/or Complexity of Data to be Reviewed and Analyzed: Risk of Complications and/or Morbidity and Mortality of Patient Management: moderate [email or web address] Not available 07/02/2023 22:24:09 09/22/2023 09/22/2023 During this encounter, 2 of the 3 elements of MDM addressed: THIS IS IN ADDITION TO THE PREVENTATIVE VISIT (1)Number and Complexity of problems: 2 or more stable chronic illnesses (2)Amount/Complex ity of data (need 1 out of 3 categories): Category 3: Discussion of management or test interpretation (3)Moderate Risk of morbidity from additional diagnostic testing or treatment (one needed): . [email or web address] Not available 09/22/2023 09:33:16 12/28/2024 12/28/2024 Assessment - Sinus irritation, potentially due to a viral infection or allergies. - Possible bacterial sinus infection if symptoms persist or worsen. Plan - Use Flonase nasal spray to alleviate sinus congestion. Administer two sprays over the course of the day, either two sprays once a day or one spray twice a day. - Monitor symptoms closely and report back by Thursday if there is no improvement. If symptoms worsen or if fevers develop, immediate contact is advised. - If symptoms do not improve by Thursday, consider starting a course of Augmentin for a potential bacterial sinus infection. Augmentin would be prescribed for 7 to 10 days, with awareness of potential side effects such as yeast infections. - Continue using Mucinex DM to facilitate drainage, and Zyrtec or Claritin for allergy relief. - Use Tylenol or ibuprofen for pain management as needed. - Apply a warm cloth over painful areas to aid in drainage and provide relief. Appointments - Follow-up appointment on Thursday if symptoms do not improve. [email or web address] Not available 12/28/2024 10:41:47 01/31/2025 01/31/2025 Assessment - Chronic knee pain reported with loading of affected joint on incline and while rising from a squatting position. Differential diagnosis remains broad, including possible patellofemoral pain syndrome, osteoarthritis (most likely), degenerative tear of meniscus, and/or considering possible impact of tension in hamstrings/calves Plan - Recommend obtaining X-rays of the knees to assess the underlying condition. This will help determine the next steps based on the results. - If X-rays show no significant issues, suggest engaging in physical therapy to address muscle tightness and improve knee function. - Advise initiating a home stretching routine to alleviate muscle tightness, particularly in the hamstrings and calves. Suggested methods include using a towel to pull toes toward the body or performing runner stretches. - Consider using Voltaren gel for localized pain relief on the knees, especially if experiencing discomfort. This may help manage pain associated with soft tissue. - Recommend applying heat to the affected areas to relax muscles before performing stretches, which may aid in reducing tightness and improving flexibility. - X-ray orders have been placed, and the patient is advised to proceed to [place] for imaging. Results will be reviewed to determine further recommendations. Appointments - X-ray appointment at [facility] During this encounter, 2 of the 3 elements of MDM addressed: (1)Number and Complexity of problems: 1 or more chronic illness with exacerbation, progression, or side effects of treatment (2)Amount/Complex ity of data (need 1 out of 3 categories): Category 3: Discussion of management or test interpretation (3)Moderate Risk of morbidity from additional diagnostic testing or treatment (one needed): Not available 01/31/2025 14:43:09 06/29/2025 06/29/2025 Assessment Possible significant contusion (bone [...] visit. Prescription - Albuterol inhaler refill sent [email or web address] Not available 06/29/2025 15:39:23 Plan of Treatment Reminders Order Date Submit Date Provider Last Modified By Organization Details Last Modified Time Details Appointments Annual Exam 2025 08:20A Tiffanie Burdick NP Not available Not available Not available Lab lipid panel, serum 2024 025 MACI [facility] (Centralized Electronic Ordering - All Locations), Patient Can Go To The Location Of Their Choice, 06/29/2025 15:39:20 CMP, serum or plasma 2024 025 MACI [facility] (Centralized Electronic Ordering - All Locations), Patient Can Go To The Location Of Their Choice, 06/29/2025 15:39:19 TSH + free T4, serum 2024 025 MACI [facility] (Centralized Electronic Ordering - All Locations), Patient Can Go To The Location Of Their Choice, 06/29/2025 15:39:22 CMP, serum or plasma 2023 024 [facility] (Centralized Electronic Ordering - All Locations), Patient Can Go To The Location Of Their Choice, 09/25/2023 21:00:36 lipid panel, serum 2023 024 [facility] (Centralized Electronic Ordering - All Locations), Patient Can Go To The Location Of Their Choice, 09/25/2023 21:00:38 TSH, serum, reflex free T4 2023 024 [facility] (Centralized Electronic Ordering - All Locations), Patient Can Go To The Location Of Their Choice, 09/22/2023 09:33:10 CBC 2023 024 [facility] (Centralized Electronic Ordering - All Locations), Patient Can Go To The Location Of Their Choice, 09/22/2023 09:33:10 pap, IG + HR HPV 2023 024 [email or web address] [facility] (Centralized Electronic Ordering - All Locations), Patient Can Go To The Location Of Their Choice, 09/22/2023 10:11:42 Referral physica l therapi st referra l - Dry Needlin g 2023 024 [email or web address] [facility] - [address], [place], [address], 09/24/2023 09:28:21 gastroe nterolo gist referra l - For colo, due 09/2023, needs EGD also for dysphag ia. 2023 024 [email or web address] [facility] Gastro Scheduling, [address] [place], [address], 03/25/2024 15:04:06 Procedures None recorde d. Surgeries None recorde d. Imaging XR, knee, 3 view 2024 025 [facility] Radiology Central Scheduling, [address] [place], [address], 07/01/2025 10:45:31 XR, knee, 3 view - Right XR 2024 025 [facility] Radiology Central Scheduling, [address] [place], [address], 02/01/2025 10:21:05 XR, knee, 3 view - Left XR 2024 025 [facility] Radiology Central Scheduling, [address] [place], [address], 02/01/2025 10:21:52 Medication Orders albuter ol sulfate HFA 90 mcg/act uation aerosol inhaler 2024 025 MACI [facility] #[id number], [address] [place], [address], 06/29/2025 15:36:56 cyclobe nzaprin e 5 mg tablet 2022 023 david [facility] #[id number], [address] [place], [address], 09/22/2023 08:00:48 Patient TargetsNo targets recorded. Patient Instructions Encounter Date Encounter Id Patient Instructions Last Modified By Organization Details Last Modified Time 07/02/2023 [id number] sciatica: exercises [email or web address] Not available 07/02/2023 15:23:55 sciatica: care instructions [email or web address] Not available 07/02/2023 15:23:55 sciatica education [email or web address] Not available 07/02/2023 15:23:55 Reason for Referral Ortho Nurse Referral for Screening for malignant neoplasm of colon For colo, due 09/2023, needs EGD also for dysphagia. 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 Funga l organ isms morph ologi donta consi stent with Pippa da spp. Satis facto ry for evalu ation . Endoc ervic al/tr ansfo rmati on zone prese nt. Proce dures /Adde nda: Human Papil za Virus , High- Risk (Any Dx) Statu s: Charis d Out Inter preta tion: Negat sherman Metho dolog y: Holog ic Aptim a HPV mRNA assay (Nucl eic Acid Ampli ficat ion Test, NAAT) . Clini amber Histo ry: Date of Last Menst rual Perio d: not avail able Menst rual Histo ry: not avail able Contr acept sherman Histo ry: not avail able Ancil sean Testi ng: HPV (any dx) Case image d by the Thin rep Tyrai ng Systobed m with sofia barrios or micheal tate Perfo rmed at [facility] ate Refer ence [facility] t[facility] of Cytol ogy, [address] [place] Clini amber Histo ry (othe r): Z12.4 Phone #: [phone], On-Ca ll Patho logis t: [id number] Not Available [facility] (Centralized Electronic Ordering - All Locations) Patient Can Go To The Location Of Their Choice, 09/25/2023 10:42:50 09/25/19 24 09/25/2023 COMPR EHENS SHERMAN METAB OLIC PANL glucose 96 mg/dL (70-99 ) Not Available [facility] (Centralized Electronic Ordering - All Locations) Patient Can Go To The Location Of Their Choice, 09/25/2023 21:00:36 09/25/19 24 09/25/2023 COMPR EHENS SHERMAN METAB OLIC PANL BUN 14 mg/dL (8-23) Not Available [facility] (Centralized Electronic Ordering - All Locations) Patient Can Go To The Location Of Their Choice, 09/25/2023 21:00:36 09/25/19 24 09/25/2023 COMPR EHENS SHERMAN METAB OLIC PANL creatinine 0.7 mg/dL (0.5-1 .0) Not Available [facility] (Centralized Electronic Ordering - All Locations) Patient Can Go To The Location Of Their Choice, 09/25/2023 21:00:36 09/25/1909/25/2023 COMPR EHENS SHERMAN METAB OLIC PANL sodium 141 mmol/ L (133-1 45) Not Available [facility] (Centralized Electronic Ordering - All Locations) Patient Can Go To The Location Of Their Choice, 09/25/2023 21:00:36 09/25/1909/25/2023 COMPR EHENS SHERMAN METAB OLIC PANL potassium 4.6 mmol/ L (3.6-5 .2) Not Available [facility] (Centralized Electronic Ordering - All Locations) Patient Can Go To The Location Of Their Choice, 09/25/2023 21:00:36 09/25/1909/25/2023 COMPR EHENS SHERMAN METAB OLIC PANL chloride 102 mmol/ L (98-10 7) Not Available [facility] (Centralized Electronic Ordering - All Locations) Patient Can Go To The Location Of Their Choice, 09/25/2023 21:00:36 09/25/1909/25/2023 COMPR EHENS SHERMAN METAB OLIC PANL bicarbonate 28 mmol/ L (22-29 ) Not Available [facility] (Centralized Electronic Ordering - All Locations) Patient Can Go To The Location Of Their Choice, 09/25/2023 21:00:36 09/25/1909/25/2023 COMPR EHENS SHERMAN METAB OLIC PANL anion gap 11 (4-17) Not Available [facility] (Centralized Electronic Ordering - All Locations) Patient Can Go To The Location Of Their Choice, 09/25/2023 21:00:36 09/25/1909/25/2023 COMPR EHENS SHERMAN METAB OLIC PANL albumin 4.8 gm/dL (3.4-4 .8) Not Available [facility] (Centralized Electronic Ordering - All Locations) Patient Can Go To The Location Of Their Choice, 09/25/2023 21:00:36 09/25/1909/25/2023 COMPR EHENS SHERMAN METAB OLIC PANL calcium 9.7 mg/dL (8.6-1 0.5) Not Available [facility] (Centralized Electronic Ordering - All Locations) Patient Can Go To The Location Of Their Choice, 09/25/2023 21:00:36 09/25/19 24 09/25/2023 COMPR EHENS SHERMAN METAB OLIC PANL bilirubin,to jayy 0.5 mg/dL (0-1.2 ) Not Available [facility] (Centralized Electronic Ordering - All Locations) Patient Can Go To The Location Of Their Choice, 09/25/2023 21:00:36 09/25/19 24 09/25/2023 COMPR EHENS SHERMAN METAB OLIC PANL total protein 6.9 gm/dL (6.2-8 .2) Not Available [facility] (Centralized Electronic Ordering - All Locations) Patient Can Go To The Location Of Their Choice, 09/25/2023 21:00:36 09/25/1909/25/2023 COMPR EHENS SHERMAN METAB OLIC PANL Ag ratio 2.3 Not Available [facility] (Centralized Electronic Ordering - All Locations) Patient Can Go To The Location Of Their Choice, 09/25/2023 21:00:36 09/25/1909/25/2023 COMPR EHENS SHERMAN METAB OLIC PANL AST 13 U/L (0-32) Not Available [facility] (Centralized Electronic Ordering - All Locations) Patient Can Go To The Location Of Their Choice, 09/25/2023 21:00:36 09/25/1909/25/2023 COMPR EHENS SHERMAN METAB OLIC PANL alk phos 78 U/L (35-10 4) Not Available [facility] (Centralized Electronic Ordering - All Locations) Patient Can Go To The Location Of Their Choice, 09/25/2023 21:00:36 09/25/1909/25/2023 COMPR EHENS SHERMAN METAB OLIC PANL ALT 16 U/L (0-33) Not Available [facility] (Centralized Electronic Ordering - All Locations) Patient Can Go To The Location Of Their Choice, 09/25/2023 21:00:36 09/25/1909/25/2023 COMPR EHENS SHERMAN METAB OLIC PANL estimated GFR creatinine 94 mL/mi n/1.7 3_M2 Creat inine based estim ated glome rular filtr ation (eGFR ) in adult s is calcu lated using the Natio nal Kidne y Found ation recom stacie d 2020 CKD-E PI equat ion. Estim ates GFR from serum creat inine , age and sex. Not Available [facility] (Centralized Electronic Ordering - All Locations) Patient Can Go To The Location Of Their Choice, 09/25/2023 21:00:36 09/25/1909/25/2023 LIPID PANEL cholesterol, total 195 mg/dL (<200) Not Available [facility] ([facility] Order[facility] - All Locations) Patient Can Go To The Location Of Their Choice, 09/25/2023 21:00:38 09/25/1909/25/2023 LIPID PANEL triglyceride 86 mg/dL (<150) Not Available [facility] ([facility] - [facility] Locations) Patient Can Go To The Location Of Their Choice, 09/25/2023 21:00:38 09/25/1909/25/2023 LIPID PANEL HDL chol 74 mg/dL (>39) Not Available [facility] (Centralized Electronic Ordering - All Locations) Patient Can Go To The Location Of Their Choice, 09/25/2023 21:00:38 09/25/1909/25/2023 LIPID PANEL LDL cholesterol, calculated 104 mg/dL (0-130 ) Not Available [facility] (Centralized Electronic Ordering - All Locations) Patient Can Go To The Location Of Their Choice, 09/25/2023 21:00:38 09/25/1909/25/2023 LIPID PANEL non HDL cholesterol (calc) 121 mg/dL (<160) Not Available [facility] (Central[facility] Ordering - All Locations) Patient Can Go To The Location Of Their Choice, 09/25/2023 21:00:38 09/25/1909/25/2023 TSH WITH REFLE X TO FT4 TSH 2.68 uIU/m L (0.4-4 .2) Not Available [facility] (Centralized Electronic Ordering - All Locations) Patient Can Go To The Location Of Their Choice, 09/25/2023 21:00:39 08/28/1908/28/2023 MAMMO , scree glenis, digit al, bilat eral PROCED URE: MM Digita l Mammo Screen ing INDICA TION: Screen ing. No known palpab le abnorm alitie s. COMPAR MIGUEL: Dating back to 020 TECHNI QUE: Full-f ield digita l CC and MLO 3D tomosy nthesi s images of both breast s were acquir ed. Comput er-aid ed detect ion (CAD) was utiliz ed in the interp retati on of this study. DENSIT Y: The breast tissue contai ns scatte red areas of fibrog landul ar densit y. FINDIN GS: No suspic ious masses , suspic ious microc alcifi cation s, or areas of neno ectura l distor tion are seen in either breast to sugges t malign analilia. IMPRES RACHEL: No mammog raphic eviden ce of malign analilia. RECOMM ENDATI ON: Annual mammog raphic screen ing BI-RAD S: 1 (Negat sherman) Lay letter mailed to joss cheney WSN: [id number] Orderi ng Physic natalee: Chanel Burdick Dictat ed By: Wiley Blount MD Dictat ed Date/T ned: 4:24 pm Review ed By: Wiley Blount MD Signed By: Wiley Blount MD Signed Date/T ned: 4:24 pm Transc ribed By: JACK Transc riptio n Date/T ned: 4:24 pm Birads : Joss cheney Class: 5 [facility] (Outpt Imaging) [address] [place] [address], [address], 09/01/2023 07:14:25 08/28/19 24 08/28/2023 MAMMO , scree glenis, digit al, bilat eral No observ ation record ed. [facility] (Er) [address] [place], [address], 09/01/2023 07:45:31 02/02/20 25 01/31/2025 XR, knee, 3 view Knee 3 Views Left Reason : pain COMPAR MIGUEL: Right knee radiog raphs of the same date. FINDIN GS: There is no eviden ce of acute or healin g fractu re, disloc ation or bone lesion . Bone minera lizati on is normal . Slight narrow ing of the medial joint compar tment. The latera l and patell ofemor al compar tments are preser terrence. No other arthri tic change s. No osteoc hondra l defect s or intra- articu lar loose bodies . No eviden ce of joint effusi on. IMPRES RACHEL: Slight thinni ng of cartil age in the medial compar tment. Otherw ise normal examin ation. WSN: [id number] Orderi ng Physic natalee: Salomón Simons Dictat ed By: Shahid Hernandez MD Dictat ed Date/T ned: 10:17 a Review ed By: Shahid Hernandez MD Signed By: Shahid Hernandez MD Signed Date/T ned: 10:17 am Transc ribed By: JACK Transc ribed Date/T ned: 10:16 am Patien t Class: 5 [facility] (Outpt Imaging) [address] [place], [address], 02/03/2025 12:04:25 02/02/20 25 01/31/2025 XR, knee, 3 view Knee 3 Views Right Reason : pain COMPAR MIGUEL: Left knee radiog raphs of the same date. Right knee radiog raphs of 008 FINDIN GS: There is no eviden ce of acute or healin g fractu re, disloc ation or bone lesion . Bone minera lizati on is normal . There is mild narrow ing of the medial joint compar tment with preser vation of the latera l and patell ofemor al compar tments . No other arthri tic change s are noted. No osteoc hondra l defect s or intra- articu lar loose bodies . No eviden ce of joint effusi on. IMPRES RACHEL: Mild cartil age thinni ng in the medial compar tment. Otherw ise normal . WSN: [id number] Orderi ng Physic natalee: Salomón Simons Dictat ed By: Shahid Hernandez MD Dictat ed Date/T ned: 10:18 a Review ed By: Shahid Hernandez MD Signed By: Shahid Hernandez MD Signed Date/T ned: 10:18 am Transc ribed By: JACK Transc ribed Date/T ned: 10:17 am Patien t Class: 5 [facility] (Outpt Imaging) [address] [place], [address], 02/03/2025 12:05:28 02/02/20 25 01/31/2025 XR, knee, 3 view No observ ation record ed. [facility] Radiology Central Scheduling [address] [place], [address], 02/03/2025 08:10:42 02/02/20 25 01/31/2025 XR, knee, 3 view No observ ation record ed. [facility] Radiology Central Scheduling [address] [place], [address], 02/03/2025 08:10:27 05/02/20 25 05/01/2025 MAMMO , scree glenis, digit al, bilat eral PROCED URE: MM Digita l Mammo Screen ing INDICA TION: Screen ing. No known palpab le abnorm alitie s. COMPAR MIGUEL: Prior mammog pam dating back to 08/24/19 21. TECHNI QUE: Full-f ield digita l CC and MLO 3D tomosy nthesi s images of both breast s were acquir ed. Comput er-aid ed detect ion (CAD) was utiliz ed in the interp retati on of this study. DENSIT Y: There are scatte red areas of fibrog landul ar densit y. FINDIN GS: No suspic ious masses , suspic ious microc alcifi cation s, or areas of neno ectura l distor tion are seen in either breast to sugges t malign analilia. IMPRES RACHEL: No mammog raphic eviden ce of malign analilia. RECOMM ENDATI ON: Annual mammog raphic screen ing BI-RAD S: 1 (Negat sherman) Lay letter mailed to joss cheney WSN: [id number] Orderi ng Physic natalee: Chanel Burdick Dictat ed By: Alana Sanderson MD Dictat ed Date/T ned: 9:26 am Review ed By: Donna rodriguez MD , Alana Warner Signed By: Alana Sanderson MD Signed /T ned: 9:26 am Transc ribed By: CSB Transc riptio n Date/T ned: 9:23 am Birads : Joss cheney Class: 5 [facility] (Outpt Imaging) [address] [place] [address], [address], 05/02/2025 09:40:07 05/02/2005/01/2025 MAMMO , scree glenis, digit al, bilat eral No observ ation record ed. [facility] [address] [place], [address], 05/02/2025 14:48:57 07/01/20 25 07/01/2025 XR, knee, 3 view No observ ation record ed. [address], [address], 07/03/2025 20:00:37 07/01/20 25 06/29/2025 XR, knee, 3 view Right knee 3 views dated [facility] 2024. Compar miguel films are from January 31, 2025. HISTOR [...] fractu re or disloc ation. Examin ation [id number]. . Thank you for allowi ng me to partic ipate in the care of this joss cheney. WSN: [id number] Orderi ng Physic natalee: Chanel Burdick Dictat ed By: Gabriel Zavala MD Dictat ed Date/T ned: 10:39 a Review ed By: Gabriel Zavala MD Signed By: Gabriel Zavala MD Signed Date/T ned: 10:39 am Transc ribed By: JACK Transc ribed Date/T ned: 10:39 am Patien t Class: 5 [facility] (Outpt Imaging) [address] [facility] [place], [address], 07/03/2025 20:00:37 Result Notes Documentation Provider Name and Address Organization Details Recorded Time Mammo, Screening, Digital, Bilateral : PROCEDURE: MM Digital Mammo Screening INDICATION: Screening. No known palpable abnormalities. COMPARISON: Dating back to 06/19/2020 TECHNIQUE: Full-field digital CC and MLO 3D tomosynthesis images of both breasts were acquired. Computer-aided detection (CAD) was utilized in the interpretation of this study. DENSITY: The breast tissue contains scattered areas of fibroglandular density. FINDINGS: No suspicious masses, suspicious microcalcifications, or areas of architectural distortion are seen in either breast to suggest malignancy. IMPRESSION: No mammographic evidence of malignancy. RECOMMENDATION: Annual mammographic screening BI-RADS: 1 (Negative) Lay letter mailed to patient WSN: [id number] Ordering Physician: Chanel Burdick Dictated By: Wiley Blount MD Dictated Date/Time: 08/28/23 4:24 pm Reviewed By: Wiley Blount MD Signed By: Wiley Blount MD Signed Date/Time: 08/28/23 4:24 pm Transcribed By: JACK Hogshead Press Operator Date/Time: 08/28/23 4:24 pm Birads: Patient Class: 5 Chanel Burdick, MEDIA LIBRARIAN [address], [facility] [address], [place], [address], [place] [facility] 09/01/2023 07:14:25 Xr, Knee, 3 View : Knee 3 Views Left Reason: pain COMPARISON: Right knee radiographs of the same date. FINDINGS: There is no evidence of acute or healing fracture, dislocation or bone lesion. Bone mineralization is normal. Slight narrowing of the medial joint compartment. The lateral and patellofemoral compartments are preserved. No other arthritic changes. No osteochondral defects or intra-articular loose bodies. No evidence of joint effusion. IMPRESSION: Slight thinning of cartilage in the medial compartment. Otherwise normal examination. WSN: [id number] Ordering Physician: Kate Simons Dictated By: Ricci Neil MD Dictated Date/Time: 02/01/25 10:17 a Reviewed By: Ricci Neil MD Signed By: Ricci Neil MD Signed Date/Time: 02/01/25 10:17 am Transcribed By: JACK Transcribed Date/Time: 02/01/25 10:16 am Patient Class: 5 KATE SIMONS PA-C [address] [place] [address] [address], [address], [facility] 02/02/2025 23:46:15 Xr, Knee, 3 View : Knee 3 Views Right Reason: pain COMPARISON: Left knee radiographs of the same date. Right knee radiographs of 11/04/2007 FINDINGS: There is no evidence of acute or healing fracture, dislocation or bone lesion. Bone mineralization is normal. There is mild narrowing of the medial joint compartment with preservation of the lateral and patellofemoral compartments. No other arthritic changes are noted. No osteochondral defects or intra-articular loose bodies. No evidence of joint effusion. IMPRESSION: Mild cartilage thinning in the medial compartment. Otherwise normal. WSN: [id number] Ordering Physician: Kate Simons Dictated By: Ricci Neil MD Dictated Date/Time: 02/01/25 10:18 a Reviewed By: Ricci Neil MD Signed By: Ricci Neil MD Signed Date/Time: 02/01/25 10:18 am Transcribed By: JACK Transcribed Date/Time: 02/01/25 10:17 am Patient Class: 5 KATE SIMONS PA-C [address] [place] [address], [facility] [address], [place], [address], [facility] 02/02/2025 23:46:16 Mammo, Screening, Digital, Bilateral : PROCEDURE: MM Digital Mammo Screening INDICATION: Screening. No known palpable abnormalities. COMPARISON: Prior mammograms dating back to 08/24/2020. TECHNIQUE: Full-field digital CC and MLO 3D tomosynthesis images of both breasts were acquired. Computer-aided detection (CAD) was utilized in the interpretation of this study. DENSITY: There are scattered areas of fibroglandular density. FINDINGS: No suspicious masses, suspicious microcalcifications, or areas of architectural distortion are seen in either breast to suggest malignancy. IMPRESSION: No mammographic evidence of malignancy. RECOMMENDATION: Annual mammographic screening BI-RADS: 1 (Negative) Lay letter mailed to patient WSN: [id number] Ordering Physician: Chanel Burdick Dictated By: Alana Birmingham MD Dictated Date/Time: 05/02/25 9:26 am Reviewed By: Alana Birmingham MD Signed By: Alana Birmingham MD Signed Date/Time: 05/02/25 9:26 am Transcribed By: JACK Hogshead Press Operator Date/Time: 05/02/25 9:23 am Birads: Patient Class: 5 Chanel Burdick, LUIS [address] [place] [address], [address], [place] [facility] 05/02/2025 09:40:07 Xr, Knee, 3 View : Right knee 3 views dated June 29, 2025. Comparison films are from January 31, 2025. HISTORY: Pain. FINDINGS: No evidence of fracture or dislocation. There is minimal loss of joint space in the medial joint compartment. Minimal pointing of the tibial spines is noted. No joint effusion is seen. IMPRESSION: Minimal degenerative changes. No evidence of fracture or dislocation. Examination 19035.. Thank you for allowing me to participate in the care of this patient. WSN: [id number] Ordering Physician: Chanel Burdick Dictated By: Gabriel Zavala MD Dictated Date/Time: 07/01/25 10:39 a Reviewed By: Gabriel Zavala MD Signed By: Gabriel Zavala MD Signed Date/Time: 07/01/25 10:39 am Transcribed By: JACK Transcribed Date/Time: 07/01/25 10:39 am Patient Class: 5 Chanel Burdick, LUIS [address] [place] [address], [phone], [place] [facility] 07/03/2025 16:02:30 Problems Name Problem SNOMED Code Status Onset Date Resolution Date Notes Provider Name and Address Organization Details Recorded Time Anxiety 00078563 Active Not Available [facility] 3 13:21:07 Family history of breast cancer 507396059 Active Not Available [facility] 3 13:21:07 Hypothyro idism 21863068 Active Not Available [facility] 3 13:21:07 Irritable bowel syndrome 14765550 Active with constipat ion Not Available [facility] 3 13:21:07 Migraine 86607009 Active Not Available [facility] 3 13:21:07 Osteopeni a 541280227 Active Not Available [facility] 3 13:21:07 Cyst of pancreas 19435311 Active Not Available [facility] 3 13:21:07 Gastroeso phageal reflux disease 966324203 Active Not Available [facility] 3 13:21:07 History of polyp of colon 141259811 Active Not Available [facility] 3 13:21:07 Achilles tendiniti s 48283211 Active Not Available [facility] 3 13:21:07 Left eye pain 74532088859 9104 Active 2024 Renee Chavarria NP [address], [address] , [facility] 5 10:36:40 Degenerat ion of meniscus of knee, unspecifi ed lateralit y 024999435 Active 2024 bilateral (see XR 02/01/25) KATE SIMONS PA-C [address] [address], [place], [address] , [facility] 5 23:46:47 Problem Notes None recorded. Procedures Surgical History Date Name Laterality Status Provider Name and Address Organization Details Recorded Time 05/01/20 Most Recent Mammogram completed Alyssa Turk [facility] 05/02/2025 14:48:48 11/18/19 25 Date of Last Colonoscopy completed Alyssa Turk [place] [facility] 06/28/2025 20:12:24 09/22/19 24 Date of Last Pap Smear completed Alyssa Turk [facility] 06/28/2025 20:11:11 12/12/19 23 Family Practice Trigger Point Injection completed Chanel Burdick NP 55 [facility], [address], [place], [address], [place] [facility] 12/11/2022 15:49:03 11/19/19 23 Joint Injection completed Chanel Burdick NP 55 [facility], [address], [place], [address], [place] [facility] 11/18/2022 14:02:21 07/20/18 95 Gallbladder Surgery completed Chanel Burdick NP 55 [facility], [address], [place], [address], [place] [facility] 02/26/2022 13:21:39 07/20/18 94 Carpal Tunnel Surgery completed Chanel Burdick NP 55 [facility], [address], [place], [address], [place] [facility] 02/26/2022 13:21:39 07/20/18 92 Carpal Tunnel Surgery completed Chanel Burdick NP 55 [facility], [address], [place], [address], [place] [facility] 02/26/2022 13:21:39 07/20/18 84 Other completed Chanel Burdick NP 55 [facility], [address], [place], [address], [place] [facility] 02/26/2022 13:21:39 07/20/18 81 Other completed Chanel Burdick NP 55 [facility], [address], [place], [address], [place] [facility] 02/26/2022 13:21:39 Imaging Results None recorded. Procedure Notes None recorded. Medical Equipment None Reported. Allergies Allergen ID Allergen Name Allergen Category Reaction Reaction Severity Criticality Documentation Date Start Date Code Code System Note Provider Name and Address Organization Details Recorded Time 47418 hydromorp sintia medicatio n Not available Not available Not available 06/28/20252015 3423 RxNorm Not Available [employer] External Data [employer] - prod 20:17:03 99607 hydrocodo ne bitartrat e medicatio n Not available Not available Not available 06/28/20252015 99489 9 RxNorm Not Available [employer] Data Service - prod 20:17:03 80571 atropine / diphenoxy late medicatio n Not available Not available Not available 06/28/20252015 06395 0 RxNorm Not Available [employer] - External Data Service - prod 5 20:17:03 22403 acetamino phen / hydrocodo ne medicatio n Not available Not available [facility] 06/28/2025 91056 2 RxNorm unrec ogniz ed react ion (text : Wetim (diso rder) , code: 05536 2003) (from [facility]) Not Available [employer] - External Data Service - prod 5 20:17:23 1495 oxycodone medicatio n hives severe Not available 02/26/2022 7804 RxNorm Fartun Lapan [address] [place] [address], [place], [place], [address], [place] [facility] 2 13:12:30 1496 codeine medicatio n hives severe Not available 02/26/2022 2670 RxNorm Fartun Lapan [address] [place] [address], [place], [address], [place] [facility] 2 13:12:30 1497 hydrocodo ne Not available hives severe Not available 02/26/2022 5489 RxNorm [address] [address], [place], [address], [place] [facility] 2 13:12:30 1498 Lomotil medicatio n hives severe Not available 02/26/2022 13448 RxNorm Fartun Lapan [address] [place] [address], [place], [place], [address], [place] [facility] 2 13:12:30 1499 SARS-CoV- 2 (COVID-19 ) vaccine, mRNA-1273 medicatio n hives severe Not available 02/26/2022 52139 32 RxNorm Fartun Lapan [address] [place] [address], [place], [address], [place] [facility] 2 13:12:30 1500 Dilaudid medicatio n hives severe Not available 02/26/2022 54956 3 RxNorm Fartun Lapan [address] [place] [address], [place], [place], [address], [place] [facility] 2 13:12:30 1501 Shingrix medicatio n hives Not available Not available 02/26/2022 26 RxNorm Fartun Lapan 55 [facility], [facility] [address], [place], [address], [place] [facility] 2 13:13:25 8418 fentanyl medicatio n hives Not available [facility] 01/31/2025 4337 RxNorm Monika Mcallister RN 55 [facility], [facility] [address], [place], [place], [address], [place] [facility] 5 14:00:29 Medications [...] hours by inhalati on route as needed. 2024 active Not Available Not Available Not Avai [...] completed Not Available Not Available Not Available [facility] 75 mg disintegr ating [...] height Body mass index (BMI) Body weight Oxygen saturation Heart rate Systolic And Diastolic Provider Name and Address Organization Details Last Updated DateTime 4 170.82 cm 24.6 kg/m2 67401.5 9 g 96 % 71 /min 128/88 mm[Hg] Alyssa [facility] 4 08:03:38 Date Recorded Body weight Body mass index (BMI) Body height Heart rate Oxygen saturation Systolic And Diastolic Provider Name and Address Organization Details Last Updated DateTime 5 60957.1 9 g 24.7 kg/m2 170.82 cm 60 /min 99 % 130/64 mm[Hg] Alyssa [facility] 5 10:26:18 Date Recorded Body height Body mass index (BMI) Body weight Oxygen saturation Heart rate Systolic And Diastolic Provider Name and Address Organization Details Last Updated DateTime 5 170.82 cm 25.4 kg/m2 66750.2 6 g 97 % 74 /min 132/68 mm[Hg] Monika Mcallister RN 55 [facility] [address], [place], [address], [place] [facility] 5 14:03:15 Date Recorded Body height Body mass index (BMI) Body weight Heart rate Oxygen saturation Systolic And Diastolic Provider Name and Address Organization Details Last Updated DateTime 5 170.82 cm 26.1 kg/m2 39622.5 2 g 69 /min 97 % 132/76 mm[Hg] Sally Redman [place] [facility] 5 15:18:58 Date Recorded Body height Body mass index (BMI) Body weight Oxygen saturation Heart rate Systolic And Diastolic Provider Name and Address Organization Details Last Updated DateTime 3 171.45 cm 25 kg/m2 89802.3 6 g 98 % 77 /min 130/72 mm[Hg] Dalia Bailey [place] - [facility] 3 14:56:02 Social History Question Answer Notes LastModified by [employer] Details LastModified Time Tobacco Smoking Status Never Smoker Chanel Burdick, LUIS [address] [facility] [address], [place], [address], [facility] 02/26/2022 13:21:22 Do You Have An Advance Directive? Yes [email or web address] Information not available 02/26/2022 Sex: Unknown Functional Status Question Answer Note LastModified by [employer] Details LastModified Time Do you use any illicit or recreational drugs? No [email or web address] Information not available 02/26/2022 What is your level of alcohol consumption? Occasional [email or web address] Information not available 02/26/2022 Are you currently employed? Yes Information not available 02/26/2022 Mental Status None [...] available 05/29/2025 10:15:33 Medical History Condition Response Hypothyroidism Y Difficulty Swallowing Y Muscle, Joint, or Bone Problems Y Arthritis Y Headaches Y Ear or Hearing Problems Y Thyroid Problems Y GI Problems Y Constipation Y Asthma Y Gynecological History Statement/Question Response Date of Last Pap Smear 09/22/2023 Most Recent Mammogram 05/01/2025 Date of Last Colonoscopy 11/17/2024 Obstetrics History GPAL:G 0 P 0 0 0 0 Immunizations Vaccine Type Date Status Note Provider Nam e and Address Organization Details Recorded Time Influenza, [...] 05/29/2025 10:15:15 zoster recombinant 9 completed Chanel Burdick NP [address], , [place] [facility] 02/26/2022 13:21:59 Influenza, MDCK, quadrivalent, PF 8 completed Chanel Burdick NP [address] [address], [place], [place], , [place] [facility] 02/26/2022 13:21:59 Influenza, split virus, trivalent, PF 5 completed Chanel Burdick NP [address], , [place] [facility] 02/26/2022 13:21:59 Td (adult), 2 Lf tetanus toxoid, preservative free, adsorbed 8 completed Chanel Burdick NP [address], , [place] [facility] 02/26/2022 13:21:59 COVID-19, mRNA, LNP-S, PF, 100 mcg/0.5mL dose or 50 mcg/0.25mL dose 1 completed Chanel Burdick NP [address], , [place] [facility] 02/26/2022 13:21:59 Influenza, split virus, trivalent, PF 7 completed Chanel Burdick NP [address], , [place] [facility] 02/26/2022 13:21:59 Influenza, recombinant, quadrivalent, PF 0 completed Chanel Burdick NP [address], , [place] [facility] 02/26/2022 13:21:59 Influenza, split virus, trivalent, preservative 1 completed Chanel Burdick NP [address] [address], [place], [place], , [place] [facility] 02/26/2022 13:21:59 COVID-19, mRNA, LNP-S, PF, 100 mcg/0.5mL dose or 50 mcg/0.25mL dose 1 completed Chanel Burdick NP [address] [place] [address] [address], [place], [address], [facility] 02/26/2022 13:21:59 COVID-19, mRNA, LNP-S, PF, 100 mcg/0.5mL dose or 50 mcg/0.25mL dose 1 completed Chanel Burdick NP [address] [place] [address], [place], [address], [facility] - [facility] 02/26/2022 13:21:59 Td (adult), 2 Lf tetanus toxoid, preservative free, adsorbed 9 completed Chanel Burdick NP [address] [place] [address], [place], [address], [facility] 02/26/2022 13:21:59 Past Encounters Encounter ID Performer Location Encounter Start Date Encounter Closed Date Diagnosis/Indication Diagnosis SNOMED-CT Code Diagnosis ICD10 Code Diagnosis IMO Codes Diagnosis Note [id number] Chanel Burdick NP [address] [place] [address] 02/26/2022 12:50:32 02/26/2022 13:39:49 Achilles tendinitis 87478708 M76.60 She will weigh her options and follow up with sports medicine as needed. Gastroesop hageal reflux disease 270499176 K21.9 I think the difficulty swallowing sounds more GERD related than COVID related. Follow up for GI consult if no improvemen t. Hypothyroidism 53379719 E03.9 Due for rechceck. Irritable bowel syndrome 30067121 K58.9 Trial of a probiotic and follow up in 1 month. Palpitations 83658703 R0 0.2 Discussed zio patch. Follow up with results Screening for cardiovascular system disease 775674340 Z13.6 [id number] Chanel Burdick NP [address] [place] [address] 04/15/2022 07:57:14 04/15/2022 08:50:50 Adult health examination 183124373 Z00.00 62 year old female here for her annual physical. She will call to schedule her mammogram. Pap smear, colonoscop y are up to date. Declines shingrix #2. She will have her labs drawn in the near future. Screening for malignant neoplasm of breast 182353774 Z12.39 Achilles tendinitis 1165 4001 M76.60 She will weigh her options and follow up with sports medicine as needed as the PRP injections are very expensive. Gastroesop hageal reflux disease 296711296 K21.9 Improved. Continue PPI. Hypothyroidism 56128086 E03.9 Due for rechceck. Labs have been ordered. Migraine 25375953 G43.90 9 Managed by neurology, has follow up with them tomorrow. Sciatica 42767167 M54.31 Will trial medrol dose pack. Did discuss PT vs chiropract ic care. Trochanter ic bursitis of right hip 8064308489 51869 M70.61 She may follow up here for injections as needed. Bilateral earache 016730 003 H92.03 Will refer to ENT. [id number] Chanel Burdick NP [address] [place] [address] 11/18/2022 13:27:58 11/18/2022 14:00:29 Trochanteric bursitis of right hip 9427479486 12471 M70.61 Injection completed today. Trochanter ic bursitis of left hip 3853040109 39345 M70.62 Injection completed today. Spasm of back muscles 20 1984627 M62.830 Discussed trigger point injection in the few weeks, follow up PRN. [id number] Chanel Burdick NP [address] [place] [address] 12/11/2022 15:05:30 12/11/2022 15:44:23 Spasm of back muscles 976848068 M62.830 Trigger point injection done today. [id number] Nataly Vargas LPN [address],[facility] [address] [place] [address] 05/25/2023 11:17:30 05/25/2023 11:45:08 Viral upper respiratory tract infection 391840648 J06.9 [id number] KATE SIMONS PA-C [address] [place] [address] 07/02/2023 14:43:12 07/02/2023 15:25:49 Pain of left hip joint 1985243269 80322 M25.552 4 week history of worsening left hip pain, with radiation across lower back, down lateral aspect of ipsilatera l thigh, and on anterior aspect of dumont. Tenderness to palpation of left greater trochanter . Pain elicited with passive left hip external rotation and abduction. No neuro muscular deficits on exam. No red flag symptoms identified . Plan at this time includes continued conservati ve management with NSAIDs and muscle relaxer PRN, heating pad, icy hot, and gentle stretching . Will refer to PT for possible sciatica with possible underlying trochanter ic bursitis. Differenti al includes sciatica/l umbar radiculopa thy, trochanter ic bursitis, osteoarthr itis, avascular necrosis [id number] Chanel Burdick NP [address] [place] [address] 09/22/2023 07:50:56 09/22/2023 08:56:02 Screening for malignant neoplasm of cervix 919889406 Z12.4 Adult heal th examination 608752855 Z00.00 63 year old female here for her annual physical. Pap smear done today. Due for repeat colonoscop y. Declines shingrix #2. Screening for malignant neoplasm of colon 911469636 Z12.11 Dysphagia 80421862 R13.1 0 Due for colonoscop y anyway, will need EGD. She plans to discuss this with gastro. Strain of right trapezius muscle 9148484769 1637863 S29.012A Will refer to PT for dry needling. Loss of hair 252428618 L 65.9 Will check labs. Gastroesop hageal reflux disease 939560740 K21.9 Worse recently with some dysphagia, see above. Hypothyroidism 61025237 E03.9 Due for rechceck. Labs have been ordered. Migraine 04461840 G43.90 9 Managed by neurology. [id number] Renee Chavarria NP [address] [place] [address] 12/28/2024 10:18:59 12/28/2024 11:18:05 Pain of left eye 8619169948 70423 H57.12 4903288 [id number] KATE SIMONS PA-C [facility] [address] [facility],[address] [place] [address] 01/31/2025 13:53:33 01/31/2025 14:36:17 Pain of knee region 0724036631 M25.561 M25.562 G89.29 [id number] Chanel Burdick NP [facility] [address] [facility],[address] [place] [address] 06/29/2025 15:12:18 06/29/2025 15:39:57 Asthma 291119676 J45.909 Pain of knee region 1003 018103 M25.561 71166876 Hypothyroidism 06908730 E03.9 Due for rechceck. Labs have been ordered. Screening for cardiovascular system disease 533302859 Z13.6 8820212 Due for a physical. Labs prior. Health Concerns Section Related Observation LastModified by Organization Detai ls LastModified Time None Recorded Concern Status LastModified by Organization Details LastModified Time None Recorded Advance Directives Directive Y: Payers Insurance Date Sequence Insurance Name Policy Number Policy Maria Covered Member ID Maria Member ID Guarantor Name 05/25/2023 1 [facility] [email or web address] [facility] [id number] Darlene A Sawin [id number] Darlene A Sawin 06/26/2025 1 [facility] PLAN (POS) Darlene A Sawin [id number] Darlene A Sawin Notes Date Note Type Note Provider Name and Address Organization Details Recorded Time 07/02/2023 text/html Here for an acute visit regarding left hip pain.History of b/l trochanteric bursitis, requiring injections, and sciatica. Reports new-onset, worsening left hip pain x 4 weeks after experiencing an extended viral infection, causing the pt to lay in bed for long periods and stay home from work. Pain begins at left greater trochanter, occasionally radiates across lower back, and frequently extends down lateral aspect of lower extremity, wrapping to the anterior aspect of left dumont. Described as sharp and rated as 8/10. Minimal temporary alleviation with heat, ice, icy hot, and hot patches. Exacerbated by sitting, walking, and rising from a seated position. Additionally worsened by sleeping on left hip and ascending a hill to work. Pain management includes advil/APAP combination pill Q4H. Walks 2.5mi daily, although recently requiring more time to complete same distance secondary to pain. KATE SIMONS PA-C [address], [address], [facility] 07/02/2023 22:24:15 09/22/2023 text/html Here for her annual physical. She has a few concerns.1. She states her hair has been falling out in large amounts for the past year. She also notes that her nails have ridges.2. Lump to the right sided trapezius that causes neck pain. She notes more dizziness and headaches. She previously had botox for headaches with neurology.3. Dysphagia with pills for the past year. More GERD symptoms as well.4. The skin on her nose is peeling. She has previously had it treated with cryotherapy. This just started about 2 weeks ago. Due for colonoscopy and pap smear. Due for labs.Allergic to shingrix.Mammogram up to date. Chanel Burdick NP [address], [address], [facility] 09/22/2023 09:33:45 12/28/2024 text/html ROS as noted in the HPI Darlene Ly Andersen, 64-year-old female - Right eye pain, sometimes on the left, with tenderness around the eye and face. - Sensation of a lump in the throat. - Runny nose ongoing for a while, possibly due to exposure to children at work. - Dizziness when moving head or bending down, leading to leaving work early. - No fever or chills reported. - Difficulty with fine work due to eye pain. - Head pounding at night, relieved after standing for a few minutes. - No visual changes or eye drainage. - Scratchy sensation in the throat causing coughing. - Tenderness in sinus areas. - Negative COVID test conducted on Thursday night/Thursday morning. - Taking Mucinex DM twice daily since Thursday and Tylenol. - Using Zyrtec or similar for 2-3 weeks for head pounding, but not effective currently. Renee Chavarria NP [address] [address], [place], [address], [facility] 12/28/2024 10:43:34 01/31/2025 text/html ROS as noted in the HPI Darlene Andersen, age 65, female, reports long-standing bilateral knee pain with intermittent episodes of increased severity. Knees have always produced crunching sounds during activity. Over the past two weeks, knee pain has become more constant and severe, especially with squatting, standing from a squat, climbing stairs, and walking up steep hills. Pain is described as under the kneecap, mainly central, sometimes medial or lateral, and at times severe enough to bring her to tears when rising from the floor. Both knees are affected, with the left knee worse lately, but symptoms alternate between sides. No swelling, redness, bruising, numbness,or tingling reported. No history of acute injury or specific mechanism. History of bilateral Achilles tendon tears prior to COVID, managed with plasma injections, and trochanteric bursitis of hip. Previous knee injections approximately 20 years ago for chronic knee pain, type of injection described as gelatinous. Reports tightness in calves and hamstrings. Right knee is extremely painful with direct pressure during massage in prone position. Reports weight gain of approximately 5 lbs recently. Has used topical agents such as Biofreeze for symptom relief. No consistent pain or swelling after crawling or at the end of the day. No prior imaging of knees in many years. KATE SIMONS PA-C [address] [place] [address], [address], [facility] 01/31/2025 14:44:17 06/29/2025 text/html ROS as noted in the [...] refill of albuterol. Chanel Burdick NP 55 [facility] [address], [place], [address], [facility] - [facility] 06/29/2025 15:40:27 OBGyn Episode No OBEpisode recorded.
--- OUTSIDE RECORDS SUMMARY | 2025-07-03 20:38 | XMS_ITS | Continuity of Care Document ---
Author Organization [facility] Address [address] [place] [address] [address] [place], [place] Phone [phone] Care Team Providers Care Plaster Patternmaker Name Role Phone Issa Johnson MD Care Team Information Receive r Unavailable Social History Type Date Description Comments Sex Female Sex Unknown
== END 2025-07-03 15:26 | disposition home or self-care (01) ==
LOC: HO.HSMS 14:11
PROVIDERS: PCP Family Medicine; Visit Provider Physician Assistant Medical
DX: G47.19 Other hypersomnia (principal); R53.82 Chronic fatigue, unspecified
CPT/HCPCS: 99214